=== PATIENT | male | born 1980 | race Caucasian/White ===

== ENCOUNTER 2023-07-05 13:39 | Observation (INO) | payer OTHER, SELFPAY ==
[2023-07-05] VITALS (9 sets, daily range): BP systolic 115–157; BP diastolic 64–118; PULSE 95–142; RESP 14–22; TEMP 36.2–37.3; O2SAT 92–100; BMI 34.1; BMI 31.8
--- NOTE | 2023-07-05 14:00 | RAD_ITS ---
STUDY: X-RAY - LEFT ANKLE REASON FOR EXAM: Male, 43 years old. ankle injury TECHNIQUE: 2 view(s) of the ankle. COMPARISON: None. FINDINGS: Comminuted displaced and angulated fracture of the distal tibia and fibula is present. Normal medial and lateral malleoli. Normal tibiotalar articulation and ankle mortise. Normal visualized talus and calcaneus. The visualized subtalar, talonavicular, calcaneocuboid and tarsal articulations are normal. The soft tissue structures are unremarkable. RAD/Ankle 2 Views IMPRESSION: Oblique spiral type comminuted fracture of the distal tibia and fibula with noted angulation. Recommend orthopedic consult. Electronically Signed: Angel Chin DO at 14:20 EDT ,
[2023-07-05] MEDS: Morphine 4 MG/ML Syringe 6 MG IV (14:43)
[2023-07-05] MEDS: Ondansetron 4 MG/2 ML Vial IV ×2 (14:43→17:42)
--- NOTE | 2023-07-05 15:02 | ED.VIS.LOWEX ---
HPI History of Present Illness Chief Complaint: Lower Extremity Injury Detail of Chief Complaint: Left ankle injury Informant: patient Narrative Narrative: Patient presents after jumping out of the back of a pickup truck at work injuring his left ankle. He was wearing ankle high boots at the time. He has deformity noted over the most distal aspect of the left tib-fib. He denies any other injury. PFSH PFSH Medical History no medical history no medical history Home Medications oxycodone-acetaminophen 5 mg-325 mg tablet (Percocet) 1 tab PO Q4H PRN pain 3 days #20 tabs 07/05/23 [Rx Last Taken Unknown] Allergy/AdvReac Type Severity Reaction Status Date / Time No Known Allergies Allergy Verified 07/05/23 13:40 Social History Smoking Status: Never smoker ROS ROS ED Constitutional Constitutional ED: Denies chills or fever(s) Eyes Eyes: Denies discharge from eye(s) ENT ENT ED: Denies discharge from eye(s), rhinorrhea or sore throat Cardiovascular Cardiovascular: Denies chest pain or palpitations Respiratory/Chest Respiratory/Chest: Denies cough or dyspnea Gastrointestinal Gastrointestinal: Denies abdominal pain, nausea or vomiting Musculoskeletal Musculoskeletal: Reports extremity pain; Denies back pain or neck pain Integumentary Denies Abrasions or rash Neurologic Neurologic: Denies headache(s) Psychiatric Psychiatric: Reports anxiety; Denies depression Allergic/Immunologic Allergic/Immunologic ED: Denies lip swelling or urticaria EXAM Physical Exam Const Vital Signs: 07/05/23 13:40 07/05/23 14:45 07/05/23 14:45 Temperature 97.2 F L 97.6 F L Temperature Source Temporal Pulse Rate 142 H 112 H Pulse Rate [1] 117 H Pulse Rate [2] 110 H Pulse Rate [3] 100 Pulse Rate [4] 101 H Pulse Rate [5] 95 Pulse Rate [6] 104 H Respiratory Rate 18 14 Respiratory Rate [1] 22 H Respiratory Rate [2] 21 H Respiratory Rate [3] 16 Respiratory Rate [4] 19 H Respiratory Rate [5] 14 Respiratory Rate [6] 22 H Blood Pressure 146/96 H Blood Pressure [1] 132/84 H Blood Pressure [2] 138/103 H Blood Pressure [4] 157/118 H Blood Pressure [6] 124/81 H Blood Pressure Mean 112 Pulse Ox 100 98 Oxygen Delivery Method Room Air Room Air Oxygen Delivery Method [1] Nasal Cannula Oxygen Delivery Method [2] Nasal Cannula Oxygen Delivery Method [3] Nasal Cannula Oxygen Delivery Method [4] Nasal Cannula Oxygen Delivery Method [5] Non-Rebreather Oxygen Delivery Method [6] Non-Rebreather Oxygen Flow Rate (L/min) Oxygen Flow Rate (L/min) [1] 2 Oxygen Flow Rate (L/min) [2] 2 Oxygen Flow Rate (L/min) [3] 2 Oxygen Flow Rate (L/min) [4] 2 Oxygen Flow Rate (L/min) [5] 15 Oxygen Flow Rate (L/min) [6] 15 07/05/23 15:39 07/05/23 15:58 07/05/23 16:05 Temperature Temperature Source Pulse Rate 101 H Pulse Rate [1] Pulse Rate [2] Pulse Rate [3] Pulse Rate [4] Pulse Rate [5] Pulse Rate [6] Respiratory Rate 16 Respiratory Rate [1] Respiratory Rate [2] Respiratory Rate [3] Respiratory Rate [4] Respiratory Rate [5] Respiratory Rate [6] Blood Pressure 115/64 Blood Pressure [1] Blood Pressure [2] Blood Pressure [4] Blood Pressure [6] Blood Pressure Mean 81 Pulse Ox 100 Oxygen Delivery Method Nasal Cannula Nasal Cannula Room Air Oxygen Delivery Method [1] Oxygen Delivery Method [2] Oxygen Delivery Method [3] Oxygen Delivery Method [4] Oxygen Delivery Method [5] Oxygen Delivery Method [6] Oxygen Flow Rate (L/min) 4 2 Oxygen Flow Rate (L/min) [1] Oxygen Flow Rate (L/min) [2] Oxygen Flow Rate (L/min) [3] Oxygen Flow Rate (L/min) [4] Oxygen Flow Rate (L/min) [5] Oxygen Flow Rate (L/min) [6] 07/05/23 16:07 07/05/23 17:00 Temperature Temperature Source Pulse Rate 98 Pulse Rate [1] Pulse Rate [2] Pulse Rate [3] Pulse Rate [4] Pulse Rate [5] Pulse Rate [6] Respiratory Rate 16 Respiratory Rate [1] Respiratory Rate [2] Respiratory Rate [3] Respiratory Rate [4] Respiratory Rate [5] Respiratory Rate [6] Blood Pressure 146/78 H Blood Pressure [1] Blood Pressure [2] Blood Pressure [4] Blood Pressure [6] Blood Pressure Mean 100 Pulse Ox 98 Oxygen Delivery Method Room Air Room Air Oxygen Delivery Method [1] Oxygen Delivery Method [2] Oxygen Delivery Method [3] Oxygen Delivery Method [4] Oxygen Delivery Method [5] Oxygen Delivery Method [6] Oxygen Flow Rate (L/min) Oxygen Flow Rate (L/min) [1] Oxygen Flow Rate (L/min) [2] Oxygen Flow Rate (L/min) [3] Oxygen Flow Rate (L/min) [4] Oxygen Flow Rate (L/min) [5] Oxygen Flow Rate (L/min) [6] Positive well nourished and well developed General Appearance ED: well developed HEENT Reports normocephalic and head/scalp atraumatic Eyes PERRL and EOMs intact bilaterally Neck supple Chest Wall inspection of chest normal and palpation of chest normal Resp normal respiratory effort and clear to auscultation bilaterally Cardio regular rhythm Rate: tachycardic GI non-tender Palpation: soft Extremity Extremity Narrative: Deformity to the distal aspect of the left tib-fib. Patient can feel me touching his left foot. Palpable distal pulses. Neuro oriented x3 Sensorium / Orientation: alert Psych Psych Narrative: Tearful Mood & Affect: anxious Skin no rashes or lesions noted MDM MDM MDM Narrative Medical decision making narrative: IV line established. Patient given morphine and Zofran for pain and nausea. Left ankle x-rays obtained. Radiography Diagnostic Testing: Clinical Impression(s) from Imaging Studies Ankle X-Ray 07/05/23 14:00 IMPRESSION: Oblique spiral type comminuted fracture of the distal tibia and fibula with noted angulation. Recommend orthopedic consult. Electronically Signed: Angel Chin DO at 14:20 EDT , Ankle X-Ray 07/05/23 16:00 IMPRESSION: Status post reduction of distal fibular and distal tibial fractures with cast placement. Electronically Signed: Mane Navarro DO at 16:34 EDT , Treatment and Re-Evaluation Narrative: X-rays of the left ankle per my interpretation reveal both bone lower leg fracture with angulation. Test results discussed with the patient he is consented for procedural sedation. Patient underwent procedural sedation with IV propofol, total of 240 mg used. Ankle is reduced and placed in a splint. Postreduction x-rays reveal improved alignment per my interpretation. X-rays were reviewed with Dr. Gorman, podiatry. Plan was to discharge the patient home with analgesics and he would call the office tomorrow for an appointment to discuss surgical fixation. Nursing staff notes that when they got the patient up he began shaking, crying, and having severe pain. At this time he is not able to go home either with crutches or a walker. I spoke with Dr. Gorman again and he will see the patient in consult. I will speak with hospitalist regarding admission. Labs to be obtained at this time and patient given a dose of Dilaudid for pain control. Discharge Plan Triage Chief Complaint: Lower Extremity Injury ED Provider: Sary Lozada Dx/Rx/DC Orders Clinical Impression: Ankle fracture Instructions: ED Ankle Fracture Prescriptions: New oxycodone-acetaminophen [Percocet] 5-325 mg tablet 1 tab PO Q4H PRN (Reason: pain) 3 Days Qty: 20 0RF Primary Care Provider: Care Physician,No Primary Referrals: Sudheer Gorman DPM [Med Staff - Active Staff] - As soon as possible Care Physician,No Primary [Primary Care Provider] - Activity Restrictions/Additional Instructions: As discussed, please call to Sherif's office in the morning. Let them know you are seen in the emergency room with an ankle fracture and he wants to see you to discuss surgical options. Do not bear any weight on your left ankle. Please elevate your leg and keep ice packs on it. Disposition Disposition: Home, Self Care
[2023-07-05] MEDS: Propofol 200 MG/20 ML Vial IV BOLUS (15:55)
--- NOTE | 2023-07-05 16:00 | RAD_ITS ---
INDICATION: post reduction EXAMINATION/TECHNIQUE: X-RAY - LEFT XR Ankle 2 Views COMPARISON: July 05, 2023 14:06 hours FINDINGS: Status post reduction with improved alignment of the bony fragments of the visualized tibia and fibula . A cast has been placed. RAD/Ankle 2 Views IMPRESSION: Status post reduction of distal fibular and distal tibial fractures with cast placement. Electronically Signed: Mane Navarro DO at 16:34 EDT ,
[2023-07-05] MEDS: oxyCODONE 5 MG Tablet PO ×2 (17:12→21:12)
[2023-07-05] MEDS: HYDROmorphone 0.5 MG/0.5 ML SYRINGE IV ×2 (17:42→18:13)
[2023-07-05 17:51] LABS: Absolute Lymphocyte Count 0.76 X10^3/uL (0.83-4.51); Absolute Neutrophil Count 7.7 X10^3/uL (2.0-7.7); Basophil# 0.01 X10^3/uL; Basophil% 0.1 % (0-1); Hematocrit 37.4 % (40-54); Hemoglobin 12.6 g/dL (13.0-16.5); Lymphocyte # 0.76 X10^3/ul (0.83-4.51); Lymphocyte % 8.4 % (19-41); Mean Corp Hgb Conc 33.7 g/dL (32-36); Mean Corpuscular Hgb 30.6 pg (27.0-32.0); Mean Corpuscular Volume 90.8 fL (80-94); Mean Platelet Vol. 10.6 fl (6.2-12.0); Monocyte# 0.54 X10^3/uL; NRBC Flagged by Analyzer 0 % (0-5); Neutrophil # 7.68 X10^3/uL (2.7-7.7); Neutrophil % 85.1 % (47-70); Platelet Count 199 K/mm3 (150-450); RBC Distribution Width CV 12.8 % (11.6-14.6); RBC Distribution Width SD 42.1 fl (35.1-43.9); Red Blood Count 4.12 M/mm3 (4.6-6.2)
[2023-07-05 18:04] LABS: International Normalized Ratio 1.1; Prothrombin Time (Protime)PT. 13.7 SECONDS (11.7-14.9)
[2023-07-05 18:05] LABS: Partial Thromboplast Time 28.3 Seconds (24.1-36.2)
[2023-07-05 18:12] LABS: AST(SGOT) 14 U/L (15-37); Alanine Aminotransfer ALT/SGPT 22 U/L (16-61); Alkaline Phosphatase 46 U/L (45-117); Anion Gap 7 (5-15); BUN 13 mg/dL (7-18); BUN/Creat Ratio 12.5 RATIO (10-20); Bilirubin, Direct 0.18 mg/dL (0.00-0.30); Calcium,Total 9.2 mg/dL (8.5-10.1); Chloride 105 mmol/L (98-107); Creatinine, Serum 1.04 mg/dL (0.70-1.30); EST Glomerular Filtration Rate 83 mL/min (>60); Est Glom Filt Rate - Afr Amer 100 mL/min (>60); Estimated Creatinine Clearance 94.56 ml/min; Globulin 2.9 g/dL (2.2-4.2); Glucose 99 mg/dL (74-106); Potassium 3.7 mmol/L (3.5-5.1); Protein, Total 6.9 g/dL (6.4-8.2); Sodium Level 139 mmol/L (136-145)
[2023-07-05] MEDS: diazePAM 5 MG Tablet PO ×2 (18:13→21:12)
[2023-07-05] MEDS: Morphine 4 MG/ML Syringe IV ×2 (19:25→23:32)
[2023-07-05] MEDS: Lactated Ringers 1,000 ML 80 ML IV (19:31)
--- NOTE | 2023-07-05 20:00 | CT_ITS ---
CT LEFT LOWER EXTREMITY WITH 3-D IMAGING CLINICAL INDICATION: Pilon Fracture Left Lower Extremity TECHNIQUE: Axial CT images of the LEFT lower extremity was performed IV contrast material. Coronal and sagittal reformats were provided. RADIATION DOSAGE (If Supplied By Facility): CTDIvol = ( 15.35 ) mGy, DLP = ( 580.19 ) mGycm COMPARISON: FINDINGS: Bones: There is a comminuted fracture at the distal shaft of the tibia. A fracture line is also noted through the lateral aspect of the distal tibial end extending to the articular surface at the talotibial articulation. There is also a fracture through the posterior malleolus of the tibia. Comminuted distal fibular fracture. Soft Tissues: There is subcutaneous edema in the distal lower leg/ankle anterolaterally. CT/Extremity Lower without Contra IMPRESSION: Multiple fractures of the distal tibia is noted. Comminuted distal fibular fracture. Electronically Signed: Mane Navarro DO at 21:29 EDT Reading Location ID and State: [facility] / [place] Tel [phone], Service support ,
[2023-07-06 01:00] VITALS: BP 160/86; PULSE 96; RESP 18; TEMP 37.1; O2SAT 100
[2023-07-06] MEDS: diazePAM 5 MG Tablet PO ×4 (01:13→17:25)
[2023-07-06] MEDS: Morphine 4 MG/ML Syringe IV ×4 (03:34→20:36)
[2023-07-06] MEDS: oxyCODONE 5 MG Tablet PO ×4 (05:20→18:31)
[2023-07-06 05:22] VITALS: BP 166/87; PULSE 84; RESP 16; TEMP 37.2; O2SAT 100
[2023-07-06] MEDS: Lactated Ringers 1,000 ML 80 ML IV ×2 (05:30→17:25)
[2023-07-06] MEDS: 0.9% Saline Lock 10 ML Syringe IV ×2 (07:54→15:44)
[2023-07-06 08:00] VITALS: BP 150/90; PULSE 94; RESP 18; TEMP 37.2; O2SAT 100
[2023-07-06] MEDS: LORazepam 2 MG/ML Syringe IV (08:09)
[2023-07-06] MEDS: Acetaminophen 500 MG Tablet 1000 MG PO ×3 (08:09→21:07)
[2023-07-06 08:22] LABS: Vitamin D,25 Hydroxy 37.8 ng/mL
[2023-07-06] MEDS: Enoxaparin 40 MG/0.4 ML Syringe SC (09:53)
[2023-07-06] MEDS: Polyethylene Glycol 3350 17 GM PACKET PO (09:54)
[2023-07-06] MEDS: Influenza Virus Vac Quad 23-24 60 MCG/0.5 ML SYRINGE IM (09:56)
--- NOTE | 2023-07-06 14:00 | CHAPLAIN ---
Type of Pastoral Visit _x__ Initial Visit ___ Follow-up Visit ___ On-call Visit ___ General Patient Visit ___ Spiritual Assessment ___ Family Conference ___ Bereavement ___ Rapid Response ___ Code Blue ___ Other (describe below) Pastoral Care Referral From _x__ Patient ___ Family ___ Nurse ___ Physician ___ Field Ring Assembler ___ Surface Hydrologist ___ Other (describe below) Sacrament/Intervention _x__ Active listening ___ Anointing ___ Presybeterian ___ Bereavement ___ Communion ___ Verna exploration ___ ___ Life review _x__ Prayer ___ Reconciliation ___ Sacrament of Sick _x__ Supportive presence ___ Wedding ___ Other (describe below) Pastoral Comments patient is welcoming of support; pt admits to pain and needing to wait until tomorrow for surgery on ankle; pt is tearful as he describes his situation and how disappointed he is at 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
[2023-07-06 14:29] VITALS: BP 143/89; PULSE 96; RESP 16; TEMP 37.1; O2SAT 100
--- NOTE | 2023-07-06 15:47 | NURSING ---
educational handout provided prescription Opioids, what you need to know.
--- NOTE | 2023-07-06 19:22 | HP.PCM_ITS ---
HPI - General General Date of Admission: 07/05/23 Date of Service: 07/06/23 Chief Complaint: Tibial fracture/fibular fracture/pilon fracture left lower extremity HPI Narrative PERNELL TIRADO, is a 43 M who presents to [facility] ED on 07/05/2023 with left lower extremity injury/left ankle injury. He has no prior medical history and denies taking medications. He states that he was jumping out of the back of the pickup truck at work injuring his left ankle. He is unsure of how the ankle injury occurred but states he landed awkwardly with immediate pain. He states he was wearing lace up high ankle boots at time of injury. Upon presentation to the ED he has visible deformity over the most distal aspect of the left tibial fibular region. Denies other injury. Radiographs were taken in the ED demonstrating comminuted displaced and angulated fracture of the distal tibia and fibula with normal medial and lateral malleoli. Normal tibiofibular articulation and ankle mortise. He did undergo closed reduction with splinting and sugar-tong casting. Pedal pulses palpable prior to and following reduction of fracture. Neurovascular status intact. Upon attempting nonweightbearing with crutches he was visibly shaken and unable to stand for transfers and was admitted for pain management. Podiatry was consulted for tibial fracture/fibular fracture/pilon fracture of the left lower extremity. PFSH Medical History Anxiety Depression Migraines Non-smoker Medical History no medical history Home Medications oxycodone-acetaminophen 5 mg-325 mg tablet (Percocet) 1 tab PO Q4H PRN pain 3 days #20 tabs 07/05/23 [Rx Last Taken Unknown] Allergy/AdvReac Type Severity Reaction Status Date / Time No Known Allergies Allergy Verified 07/05/23 13:40 Social History Smoking Status: Never smoker ROS Constitutional Constitutional: Denies anorexia, body ache(s), chills, fatigue or fever(s) Eyes Eyes: Denies blurry vision, change in vision or loss of vision ENT HEENT: Denies dysphagia, nasal congestion or sore throat Cardiovascular Cardiovascular: Denies chest pain, claudication or cold extremities Respiratory/Chest Respiratory/Chest: Denies chest congestion, cough or wheezing Gastrointestinal Gastrointestinal: Denies abdominal pain, constipation, diarrhea, nausea or vomiting Genitourinary Genitourinary: Denies dysuria, hematuria, urinary frequency, urinary hesitancy, urinary incontinence or urinary urgency Musculoskeletal Musculoskeletal: Reports other Details: Denies joint pain, joint stiffness, joint swelling. Reports pain in the left lower extremity Integumentary Integumentary: Denies lesions, pruritus or rash Neurologic Neurologic: Denies dizziness, numbness or seizures Psychiatric Psychiatric: Reports anxiety; Denies depression Endocrine Endocrinology: Denies cold intolerance or heat intolerance Hematologic/Lymphatic Hematologic/Lymphatic: Denies easy bleeding or easy bruising Allergic/Immunologic Allergic/Immunologic: Denies wheezing Vital Signs Vital Signs Vital Signs: 07/05/23 19:36 07/05/23 22:28 07/06/23 01:00 Temperature 98.8 F Temperature Source Oral Pulse Rate 96 Pulse Strength Normal (2+) Respiratory Rate 18 Respiratory Effort Normal Non-Labored Respiratory Depth Normal Respiratory Pattern Normal Blood Pressure 160/86 H Blood Pressure Mean 110 Blood Pressure Source Monitor Blood Pressure Position Semi-Fowlers Blood Pressure Location Right Arm Pulse Ox 100 Oxygen Delivery Method Room Air Room Air 07/06/23 01:17 07/06/23 05:22 07/06/23 08:00 Temperature 98.9 F 99 F Temperature Source Oral Temporal Pulse Rate 84 94 Pulse Strength Respiratory Rate 16 18 Respiratory Effort Normal Non-Labored Respiratory Depth Normal Respiratory Pattern Normal Blood Pressure 166/87 H 150/90 H Blood Pressure Mean 113 110 Blood Pressure Source Monitor Monitor Blood Pressure Position Semi-Fowlers Semi-Fowlers Blood Pressure Location Right Arm Right Arm Pulse Ox 100 100 Oxygen Delivery Method Room Air Room Air Room Air 07/06/23 08:00 07/06/23 14:29 07/06/23 15:38 Temperature 98.7 F Temperature Source Oral Pulse Rate 96 Pulse Strength Respiratory Rate 18 16 Respiratory Effort Normal Respiratory Depth Normal Respiratory Pattern Normal Blood Pressure 143/89 H Blood Pressure Mean 107 Blood Pressure Source Monitor Blood Pressure Position Semi-Fowlers Blood Pressure Location Right Arm Pulse Ox 100 100 Oxygen Delivery Method Room Air Room Air Room Air Weight Weight: 100.561 kg Body Mass Index (BMI) 31.8 Physical Exam Const alert, oriented x3 and no apparent distress General Appearance: cooperative and well developed HEENT normocephalic Eyes General Eye: normal appearance of both eyes Neck full ROM General: normal visual inspection Lymph Lymphatic: no lymphadenopathy noted and no lymphedema noted Chest inspection of chest normal Resp normal respiratory effort Cardio regular rate and regular rhythm GI soft to palpation and non-tender Extremity Extremity Narrative: Left lower extremity: Vascular: DP and PT pulses palpable with adequate capillary fill time less than 3 seconds to digits. Normal temperature gradient proximal to distal. Mild to moderate edema about the ankle. No evidence of fracture blister. Dermatological: Skin demonstrates normal turgor. No rashes or lesions, no subcutaneous nodules, no ecchymosis. Skin at lateral ankle does demonstrate moderate soft tissue swelling without evidence of fracture blister. Skin overlying fracture sites is intact without evidence of open wound. Musculoskeletal: Muscle strength deferred secondary to fracture. Range of motion of the joints deferred secondary to fracture. Does have pain to p alpation about the ankle and anterior tibial shaft. Skin skin turgor normal and no jaundice Neuro oriented x3 Results Lab / Micro Data 07/05/23 17:38 07/05/23 17:38 Labs: Laboratory Results - last 24 hr 07/06/23 06:15: Vitamin D 25-Hydroxy 37.8 Radiology Impression Lower Extremity CT 07/05/23 20:00 IMPRESSION: Multiple fractures of the distal tibia is noted. Comminuted distal fibular fracture. Electronically Signed: Mane Navarro DO at 21:29 EDT Reading Location ID and State: [facility] / [place] Tel [phone], Service support , Assessment & Plan Assessment/Plan (1) Ankle fracture: (2) Displaced fracture of lateral malleolus of left fibula: (3) Displaced comminuted fracture of shaft of left tibia, initial encounter for closed fracture: (4) Pain in left lower leg: PLAN: Plan Patient seen and evaluated early this a.m. Posterior splint and sugar-tong cast intact to left lower extremity. Dressings taken down and removed for skin examination. On examination he demonstrates no evidence of fracture blisters or ecchymosis at this present time. There is mild edema to the lateral aspect of the lower extremity overlying the fibular fracture. He does demonstrate palpable pedal pulses DP and PT with adequate capillary fill time to the digits. Neurovascular status intact. Modified Mares compression dressing was was reapplied/placed with posterior s plint and sugar-tong cast reapplied and anchored with 4 inch and 6 inch Francisco wrap's. Radiographic: Radiographs of the left ankle prereduction demonstrate oblique spiral type comminuted fracture of the distal tibia and fibula with noted angulation. Postreduction demonstrate status post reduction of the distal fibular and distal tibia fractures with improved alignment with bony fragments of the visualized tibia and fibula. A cast has been placed. I did order and review CT all lower extremity demonstrating a comminuted fracture of the distal shaft of the tibia with fracture line also noted through the lateral aspect of the distal tibia extending to the articular surface of the talotibial articulation. There is also fracture through the posterior malleolus of the tibia. There is a comminuted distal fibular fracture. There is subcutaneous edema of the distal lower leg/ankle anterior laterally. Laboratory data was reviewed and otherwise unremarkable. Vitamin D level WNL. He is to remain nonweightbearing to the left lower extremity with assistance of a walker. Continue to elevate left lower extremity at all times of rest. May apply ice behind left knee to aid in pain reduction. Pain medication: IV morphine 4 mg every 4 hours. Oxycodone p.o. every 4-6 hours. IV Tylenol as needed. May give Ativan 2 mg as needed. I discussed with patient and surgical plan for staged intervention secondary to soft tissue swelling. I discussed the nature of his injury in detail with patient and in addition to the surgical plan. Discussed application of an external fixator tomorrow for fracture management. Discussed following application of fixator plan for placement in SNF for continued care and pain management. Discussed returning in 2 weeks for primary ORIF of distal tibia and fibular fractures. Following fixation of fractures he will be admitted for postoperative pain management. Discussed possibility of going home following hospital admission for ORIF. I discussed the surgical plan in detail with patient and . Patient understands that this is a traumatic injury requiring sequential approach of fracture management. He is understanding that this is a nonelective procedure with need for fixation. also voices understanding of surgical plan. I discussed the risks and complications of the procedure in detail. Discussed the risks and complications include but are not limited to the following: Pain, continued pain, complex regional pain syndrome, neuritis/numbness, infection, edema, dehiscence, delayed healing/nonhealing, delayed union/nonunion, malunion, overcorrection/under correction, pin tract infection, painful hardware/symptomatic hardware, cage rage secondary to fixator, posttraumatic arthritis, difficulty wearing shoes/boots, inability to wear shoes/boots, contracture, decreased range of motion/ankle stiffness, addiction to pain medication, blood clot, allergic reaction, loss of function, loss of limb, loss of life. Patient and voiced understanding of these risks. Patient and understand necessity of fracture fixation and surgical plan. Consent for application of external fixator left lower extremity was obtained and patient signed freely. Plan for surgical intervention of application of external fixator left lower extremity tomorrow, 07/07/2023 at 2 PM. Patient to remain n.p.o. overnight. He is to also remain nonweightbearing to the left lower extremity. Podiatry will continue to follow Jr. Ashwin Prince.[facility] [phone]
[2023-07-06 21:02] VITALS: BP 157/90; PULSE 93; RESP 16; TEMP 36.9; O2SAT 100
[2023-07-07] VITALS (10 sets, daily range): BP systolic 133–151; BP diastolic 71–95; PULSE 76–114; RESP 16–22; TEMP 36.4–37.3; O2SAT 97–100; BMI 31.8
[2023-07-07] MEDS: oxyCODONE 5 MG Tablet PO ×3 (00:56→18:40)
[2023-07-07] MEDS: diazePAM 5 MG Tablet PO ×2 (00:56→20:54)
[2023-07-07] MEDS: Morphine 4 MG/ML Syringe IV ×4 (03:30→20:54)
[2023-07-07] MEDS: Lactated Ringers 1,000 ML 80 ML IV ×2 (03:32→18:02)
[2023-07-07] MEDS: Acetaminophen 500 MG Tablet 1000 MG PO ×2 (04:59→20:54)
--- NOTE | 2023-07-07 11:27 | CASEMGMT ---
A list of HH & SNF?providers including quality and resource use data and consistent with the patient's preferred geographic region, medical needs, and insurance network was created in [employer] Guide.? This list was provided to the RN HARI. Caro Mitchell, Discharge Planning Asst.
--- NOTE | 2023-07-07 11:45 | CASEMGMT ---
HOMERO NORIEGA FELT CUTTER CM to room to meet with patient for initial transition planning/care coordination assessment. HOMERO NORIEGA introduced self and role at [facility].? Pt voices understanding and consents to assessment at this time.? Pt resting in bed, painful, but states willing to complete assessment w/HOMERO NORIEGA at this time. Sig otherKristi, @ bedside and pt agreeable to her being present during assessment.? Pt is A/O at this time and answers all questions appropriately.?? Care providers, pharmacy, and demographics verified/updated at this time. PCP: Pt states has a PCP in [place] but has not been in to see him for a couple of years and would like to switch to a different PCP. Pt states he has commercial insurance, [employer]. Provided w/list of PCP's in the [place] area that are in-network w/[employer] that was prepared by HOMERO Curiel CM. Specialists: none Preferred Pharmacy: [facility] [place], [place] Insurance: Intrakr for this hospitalization. Pt also has [employer] insurance. Prescription Benefit:? Yes Living Will/HPOA:? Pt does not currently have LW/HCPOA and would like to complete. Hazel LEYVA, made aware. LNOK: Pt has 2 children, ages 18 and 5. Sig other, Kristi. Living Arrangements: Pt has lived w/sig other, Kristi, for about 15 yrs. Their 5-yr-old lives w/them and his 18-yr-old stays w/them occasionally. They live in a one-story home w/2 steps to enter. Pt was independent prior to injury. He works full-time. Transportation: Pt, Kristi. DME: ? Denied having used any DME prior to injury. Pt and Kristi anticipate pt will need the following, once he returns home: knee scooter, shower chair, walker. HHC/SNF: No hx of either. Per Dr Gorman note, pt to go to surgery today and external fixator to be placed, pt to go to a SNF for a couple of weeks, and then return for ORIF. Per Kristi and patient, Dr oGrman did inform them of this. Discussed discharge plan with them and pt preference. Kristi and pt state, if pt would be able to discharge home, they would prefer that, but if SNF is needed, then they would be agreeable. Pt resting in bed and is very painful. Pt going to OR this AM. They were made aware therapy would evaluate pt tomorrow and would make recommendations and further discussion about discharge plan would be discussed further at that time. They were provided w/list of SNF's that was prepared by HOMERO Curiel CM, and Caro, operations planner to review. Top 3 choices, should pt need to go to a SNF, are as follows: 1. [facility]. [facility] 3. [facility] Hazel LEYVA, made aware. PLAN: ?TBD by progress w/therapy. Monty KELLY RN CM
--- NOTE | 2023-07-07 11:48 | CASEMGMT ---
Met with patient to complete ROD form. ROD form explained to patient who voiced understanding and signed form. Original form placed in pt?s chart and copy provided to patient. Caro Mitchell, Discharge Planning Asst.
--- NOTE | 2023-07-07 12:03 | CASEMGMT ---
Discharge Planning A list of?PCP?providers including quality and resource use data and consistent with the patient's preferred geographic region, medical needs, and insurance network was created in [employer] Guide.? This list was provided to the RN HARI. Caro Mitchell, Discharge Planning Asst.
--- NOTE | 2023-07-07 14:25 | RAD_ITS ---
STUDY: X-RAY - LEFT ANKLE REASON FOR EXAM: Male, 43 years old. FX TECHNIQUE: 20 view(s) of the ankle. DLP was 6.97 COMPARISON: None. FINDINGS: 20 fluoroscopic guided intraoperative views of the ankle were obtained during open reduction internal fixation of distal tibial and fibular fractures. RAD/Ankle 2 Views IMPRESSION: Intraoperative open reduction internal fixation of distal tibial and fibular fractures Electronically Signed: Donis Vicente MD at 18:58 EDT ,
[2023-07-07] MEDS: Cefazolin 2 GM in 0.9% Normal Saline (100mL Bag) 100 ML IV (14:34)
[2023-07-07] MEDS: Lidocaine 1% (20 ml mdv) 20 ML Vial (14:48)
[2023-07-07] MEDS: Bupivacaine 0.25% 30 ML Vial (14:48)
[2023-07-07] MEDS: Gabapentin 600 MG Tablet PO (17:49)
--- NOTE | 2023-07-07 19:10 | PCM.OPRPT ---
Problems Associated Problem List Diagnoses (1) Displaced comminuted fracture of shaft of left tibia, initial encounter for closed fracture: (2) Displaced fracture of lateral malleolus of left fibula: (3) Pain in left lower leg: (4) Ankle fracture: Report of Operation Date of Procedure: 07/07/23 Pre-Operative Diagnosis: 1. Displaced comminuted fracture of shaft of left tibia 2. Displaced fracture of lateral malleolus left fibula 3. Pain in left lower leg Post-Operative Diagnosis: 1. Displaced comminuted fracture of shaft of left tibia 2. Displaced fracture of lateral malleolus left fibula 3. Pain in left lower leg Surgery/Procedure Performed:: Application of external fixator left lower extremity Description of Surgical Findings:: See operative note for findings Surgeon: Sudheer Gorman force variation equipment tender: Kee Goode DPM PGY-3 Type of Anesthesia: General and Local (20 cc one-to-one mixture 1% lidocaine plain and 0.5% Marcaine plain) Specimen's removed: None Drains: None Estimated Blood Loss (mL): < 5mL Description of Procedure: HPI/indication: Patient is a 43-year-old male who presented to [facility] ED on 07/05/2023 with left lower extremity injury/left ankle injury. Patient reports jumping off the back of a pickup truck at work at the end of the shift injuring his left ankle. He is unsure of how how the injury occurred but states he did land awkwardly with immediate pain. Was wearing lace up hightop ankle boot at time of injury. Following presentation to ED he did undergo closed reduction and was placed in a splint/sugar-tong cast and admitted to hospital for pain control. CT scan obtained demonstrating displaced comminuted fracture of the tibial shaft, posterior malleolus fracture, and displaced fibular fracture. Discussion was had with patient and the nature of his traumatic injury requiring a sequential approach of fracture management. Discussed associated risks of primary fixation with concomitant soft tissue swelling. Discussed application of external fixator to the left lower extremity. Discussed allowing edema control prior to primary ORIF. They voiced understanding of the surgical plan. They understand this is not an elective procedure with need for fixation. I discussed the risk and complications of procedure in detail. Discussed the risk and complications include but are not limited to the following: Pain, continued pain, complex regional pain syndrome, neuritis/numbness, infection, edema, dehiscence, delayed healing/nonhealing, delayed union/nonunion, malunion, overcorrection/under correction, pin tract infection, painful hardware, symptomatic hardware, cage rage secondary to external fixator, posttraumatic arthritis, fracture, difficulty wearing shoes/boots, inability to wear shoes/boots, contracture, decreased range of motion/ankle stiffness, addiction to pain medication, blood clot, allergic reaction, loss of function, loss of limb, loss of life. Patient and voiced understanding of these risk. Patient and understand the necessity of fracture fixation and surgical plan. Consent for application of external fixator was obtained and patient freely signed. All diagnostic data was reviewed prior to entering the OR. Operative limb was signed prior to entering OR. Patient was scheduled to undergo application of external fixator left lower extremity on 07/07/2023 at [facility]. Procedure: Under mild sedation patient was brought in the operating placed on table in supine position. Following induction of IV general anesthesia pneumatic bacteria was placed about the patient's left thigh. Next, a local anesthetic block consisting of 20 cc one-to-one mixture 1% lidocaine plain and 0.5% Marcaine was performed about the proximal lower extremity. At this time lower extremity was cleanly shaven for clean surgical site. Next, the leg was scrubbed, prepped, and draped in the usual aseptic manner. An Esmarch bandage was utilized to exsanguinate the left lower extremity and the pneumatic thigh tourniquet was inflated to 300 mmHg. Next attention was directed to the left lower extremity where at this point, intraoperative fluoroscopy was utilized to identify the fracture site as well as the ankle and the appropriate starting point in the tibia. Following identification two 5.0 x 175 mm Schanz pins were placed in the tibia bicortically, which were visualized under fluoroscopy. Next, utilizing fluoroscopy the appropriate starting point on the calcaneus was used for the transcalcaneal crossing pin. Once identified, a single central threaded calcaneal transfixion pin, 6 mm x 300 mm was applied across the calcaneus parallel to the joint surface. After placement of all the pins, the external fixator/frame was then applied (carbon fiber rods measuring 1 x 100mm, 3 x 150mm, 1 x 250mm, 1 x 400mm, and 1 x 450mm with combination clamps x 12), and traction with attempts to get a hold of the fibular shaft fracture out to length as well as distal pilon fracture of the tibia out to length. It was noted and checked with fluoroscopy that the fracture fragment tibia/fibula was in a more reduced position in sagittal and coronal planes, the external fixator apparatus was then locked into place with the [employer] T-handle per the outreach specialist's recommendations. Next, a Schanz pin measuring 4 mm x 125 mm was placed into the medial cuneiform and the foot was dorsiflexed to prevent equinus contracture and pin secured to the frame utilizing [employer] T-handle per manufacture recommendation. Kickstand was applied to frame to aid in compliance with nonweightbearing status to manufactures recommended guidelines. X-ray images were taken to identify correct placement of the hardware with improved reduction of the fracture fragments. Next, a simple 3-0 interrupted Prolene suture was utilized to aid in closure about pin sites. At this time the pneumatic thigh tourniquet was deflated and a prompt hyperemic response was noted to the digits of the left foot. The Schanz pin, calcaneal and tibial crossing pin sites were dressed with jumpstart pads and clips the proximal Schanz pins were covered with a jumpstart and drain sponge, following this application of 3 points of Francisco bandage for edema control. The patient tolerated the procedure and anesthesia well and was transported to PACU vital signs stable vascular status intact to the left foot. He will remain nonweightbearing to the operative extremity, left lower extremity, and continue to elevate with blanket bump/pillows with no pressure to the right heel. He will return to the floor for continued pain management once anesthesia protocol has been met. Podiatry will continue to follow while in-house. At this time plan for SNF placement for continued pin site care to change jumpstart pin dressings per manufacture recommendation. Plan to perform primary ORIF of fracture sites in 2 weeks. Grafts/Implants Used: Arthrex ArthroFx external fixator system, Schanz pins x 3, Transfixion pin Complications None Admit VTE Documentation VTE Present on Admission: No VTE Mechan Device Prophylaxis: SCD's VTE Pharm Prophylaxis ordered?: Yes
--- NOTE | 2023-07-07 19:20 | RAD_ITS ---
STUDY: X-RAY - LEFT ANKLE REASON FOR EXAM: Male, 43 years old. Post-op external fixator application TECHNIQUE: 5 view(s) of the ankle. COMPARISON: None. FINDINGS: Postsurgical changes status post open reduction internal fixation of distal tibial and fibular fractures and placement of fixating pins with fracture fragments in near anatomic alignment and position RAD/Ankle min 3 Views IMPRESSION: Status post ORIF distal tibial and fibular fractures Electronically Signed: Donis Vicente MD at 20:15 EDT ,
[2023-07-08 00:50] VITALS: BP 161/78; PULSE 101; RESP 16; TEMP 36.8; O2SAT 100
[2023-07-08] MEDS: diazePAM 5 MG Tablet PO ×6 (01:02→22:02)
[2023-07-08] MEDS: oxyCODONE 5 MG Tablet PO ×6 (01:02→22:00)
[2023-07-08] MEDS: Morphine 4 MG/ML Syringe IV ×5 (04:13→20:13)
[2023-07-08 04:21] VITALS: BP 133/88; PULSE 88; RESP 18; TEMP 36.7; O2SAT 100
[2023-07-08] MEDS: Acetaminophen 500 MG Tablet 1000 MG PO ×3 (05:25→22:00)
[2023-07-08 07:54] VITALS: BP 152/81; PULSE 104; RESP 18; TEMP 37.1; O2SAT 100
[2023-07-08 11:06] VITALS: BP 156/74; PULSE 99; RESP 18; TEMP 36.8; O2SAT 100
--- NOTE | 2023-07-08 11:23 | CASEMGMT ---
Discharge Planning Referral sent via [facility] to [facility]. Caro Mitchell, Discharg Planning Asst.
--- NOTE | 2023-07-08 11:33 | CASEMGMT ---
Social Work SW met with pt and introduced self and role of SW. Pt requesting to complete advance directives. SW assisted in completing a living will and health care power of insurance attorney naming his significant other Kristi Chandra. Copy placed on chart and original given to pt. SW also spoke with pt regarding discharge plan. Kristi called and on speaker phone during conversation. Pt met with therapy this morning and SW reviewed pts functional ability during this time. Pt and Kristi feel pt will need SNF placement. List had been reviewed by pt and SO and preferences are 1. [facility] 2. [facility] 3. [facility]. Referral to be sent. Pt is here under workers comp. [employer] reached out to the appropriate staff to obtain a claim number. Plan: [facility], pending acceptance and [facility] approval. BIENVENIDO Quintana
--- NOTE | 2023-07-08 11:47 | CASEMGMT ---
Discharge Planning Referral sent to [facility] via [facility]. Caro Mitchell, Discharge Planning Asst.
[2023-07-08] MEDS: 0.9% Saline Lock 10 ML Syringe IV ×2 (12:11→16:11)
--- NOTE | 2023-07-08 12:19 | CASEMGMT ---
Discharge Planning Patient has been declined by [facility]. [facility] will not have open bed until early next week. Their nearby sister facilities do have bed availability. SW updated. Caro Mitchell, Discharge Planning Asst.
--- NOTE | 2023-07-08 13:02 | PCM.PROGNOTE ---
Subjective Subjective Patient is a 43-year-old male who is seen in follow-up s/p application of external fixator. POD #1. Does admit to some pain still and feels like the frame is cumbersome. Therapy assisting in remaining nonweightbearing to the left lower extremity with assistance of walker. They are assisting with transitions and bathroom. Patient has been able to void. Reports no difficulty with this. Denies constitutional symptoms. Denies further complaints. Objective Data Objective Data Vital Signs: Vital Signs Temp Pulse Resp BP Pulse Ox O2 Del Method O2 Flow Rate 98.2 F 99 18 156/74 H 100 Room Air 2 07/08/23 11:06 07/08/23 11:06 07/08/23 11:06 07/08/23 11:06 07/08/23 11:06 07/08/23 11:06 07/05/23 15:58 Oxygen Flow Rate (L/min) [1] 2 Oxygen Flow Rate (L/min) [6] 15 Oxygen Flow Rate (L/min) [5] 15 Oxygen Flow Rate (L/min) [4] 2 Oxygen Flow Rate (L/min) [3] 2 Oxygen Flow Rate (L/min) [2] 2 Oxygen Flow Rate (L/min) 2 Oxygen Delivery Method [1] Nasal Cannula Oxygen Delivery Method [6] Non-Rebreather Oxygen Delivery Method [5] Non-Rebreather Oxygen Delivery Method [4] Nasal Cannula Oxygen Delivery Method [3] Nasal Cannula Oxygen Delivery Method [2] Nasal Cannula Oxygen Delivery Method Room Air Weight: 100.561 kg Body Mass Index (BMI) 31.8 Intake & Output: Intake and Output for Last 24 Hours 07/06/23 07/07/23 07/08/23 23:59 23:59 23:59 Intake Total 2452.00 / 2452.00 1919.33 / 1919.33 4124 / 4124 Output Total 2550 / 3100 1000 / 1000 2700 / 2700 Balance -98.00 / -648.00 919.33 / 919.33 1424 / 1424 Lab / Micro Data 07/05/23 17:38 07/05/23 17:38 Radiography Diagnostic Testing: Radiology Impression Ankle X-Ray 07/07/23 14:25 IMPRESSION: Intraoperative open reduction internal fixation of distal tibial and fibular fractures Electronically Signed: Donis Vicente MD at 18:58 EDT Reading Location ID and State: [place] / [place] Tel [phone], Service support , Ankle X-Ray 07/07/23 19:20 IMPRESSION: Status post ORIF distal tibial and fibular fractures Electronically Signed: Donis Vicente MD at 20:15 EDT Reading Location ID and State: [place] / [place] Tel [phone], Service support , Physical Exam Const alert, oriented x3 and no apparent distress General Appearance: cooperative and well developed HEENT normocephalic Eyes General Eye: normal appearance of both eyes Neck full ROM General: normal visual inspection Lymph Lymphatic: no lymphadenopathy noted and no lymphedema noted Chest inspection of chest normal Resp normal respiratory effort Cardio regular rate and regular rhythm GI soft to palpation and non-tender Extremity Extremity Narrative: Left lower extremity: Vascular: DP and PT pulses palpable with adequate capillary fill time less than 3 seconds to digits. Normal temperature gradient proximal to distal. Mild to moderate edema about the ankle. No evidence of fracture blister. Dermatological: Skin demonstrates normal turgor. No rashes or lesions, no subcutaneous nodules, no ecchymosis. Skin at lateral ankle does demonstrate moderate soft tissue swelling without evidence of fracture blister. Skin overlying fracture sites is intact without evidence of open wound. Musculoskeletal: External fixator in place to left lower extremity with dressings intact. Muscle strength deferred secondary to fracture. Range of motion of the joints deferred secondary to fracture. Does have pain to palpation about the ankle and anterior tibial shaft. Skin skin turgor normal and no jaundice Neuro oriented x3 Assessment & Plan Assessment/Plan (1) Displaced comminuted fracture of shaft of left tibia, initial encounter for closed fracture: (2) Displaced fracture of lateral malleolus of left fibula: (3) Pain in left lower leg: (4) Ankle fracture: PLAN: Plan Patient seen and evaluated He is s/p application of external fixator left lower extremity. DOS 07/07/2023. POD #1 At this time he is doing well but still does cite some pain. Discussed with him that this is expected with this type of fracture/nature of injury in addition to postsurgical status. Discussed that this will improve over the next few days. Discussed expectations for the following primary ORIF for full understanding of his pain management and thorough aftercare. He is understanding of our discussion. External fixator with compressive dressing intact to left lower extremity. He does demonstrate palpable pedal pulses DP and PT with adequate capillary fill time to the digits. Neurovascular status intact. Radiographic: Radiographs of the left ankle 07/06/23 prereduction demonstrate oblique spiral type comminuted fracture of the distal tibia and fibula with noted angulation. Postreduction demonstrate status post reduction of the distal fibular and distal tibia fractures with improved alignment with bony fragments of the visualized tibia and fibula. A cast has been placed. CT 07/06/23: lower extremity demonstrating a comminuted fracture of the distal shaft of the tibia with fracture line also noted through the lateral aspect of the distal tibia extending to the articular surface of the talotibial articulation. There is also fracture through the posterior malleolus of the tibia. There is a comminuted distal fibular fracture. There is subcutaneous edema of the distal lower leg/ankle anterior laterally. Laboratory data was reviewed and otherwise unremarkable. Vitamin D level WNL. He is to remain nonweightbearing to the left lower extremity with assistance of a walker. Continue to elevate left lower extremity at all times of rest. May apply ice behind left knee to aid in pain reduction. Pain medication: IV morphine 4 mg every 4 hours. Oxycodone p.o. every 4-6 hours. IV Tylenol as needed. May give Ativan 2 mg as needed. I discussed with patient and surgical plan for staged intervention secondary to soft tissue swelling. I discussed the nature of his injury in detail with patient and in addition to the surgical plan. Discussed application of an external fixator for fracture management, this was applied 07/07/2023. Discussed following application of fixator plan for placement in SNF for continued care and pain management. Discussed returning in 2 weeks for primary ORIF of distal tibia and fibular fractures. Following fixation of fractures he will be admitted for postoperative pain management. Discussed possibility of going home following hospital admission for ORIF. He is to remain nonweightbearing to the left lower extremity with assistance of walker. He is currently awaiting SNF placement. Dressing to remain intact for 7 days. Following this, dressings will be taken down and pin sites changed with new jumpstart dressing and compressive wrap dressing applied again to the left lower extremity. This is a planned staged surgical management in case with primary ORIF of the tibia and fibula fractures to follow in 2 weeks. Podiatry will continue to follow. Sudheer Gorman Jr. D.P.M. [facility] [phone]
--- NOTE | 2023-07-08 15:17 | CASEMGMT ---
Social Work [facility] and [facility] is unable to accept but [facility] is able to accept. Pt made aware and agreeable. Phone call to [facility] and spoke with Felicita Tinajero [phone] who is the front ladies' locker room attendant. Felicita states that case was just submitted and a claim number would not be available until Tuesday morning. Pt's assigned CM is Rosamaria Orta [phone]. SW left for Rosamaria requesting return call. Ruthie is contact at [facility] [phone] and she was updated on status of [facility] claim. A bed will be held for pt and SW will submit C9 on Tuesday once a claim number is available. Physician and pt notified. Plan: [facility], pending approval from [facility] BIENVENIDO Quintana
[2023-07-08 15:46] VITALS: BP 148/95; PULSE 88; RESP 16; TEMP 36.8; O2SAT 95
--- NOTE | 2023-07-08 16:25 | CASEMGMT ---
Social Work Return call from Rosamaria Orta at [facility]. Claim number has not been assigned. Rosamaria requesting clinicals be sent. [employer] faxed to requested number [phone]. C9 can be faxed to Rosamaria once claim number is assigned. [employer] to follow up on Tuesday for claim number. BIENVENIDO Quintana
[2023-07-08 20:12] VITALS: BP 152/77; PULSE 83; RESP 18; TEMP 36.8; O2SAT 100
[2023-07-09] MEDS: Morphine 4 MG/ML Syringe IV ×6 (01:06→22:24)
[2023-07-09] MEDS: oxyCODONE 5 MG Tablet PO ×5 (02:45→20:27)
[2023-07-09] MEDS: diazePAM 5 MG Tablet PO ×5 (02:45→20:27)
[2023-07-09 02:47] VITALS: BP 148/89; PULSE 70; RESP 16; TEMP 36.6; O2SAT 100
[2023-07-09] MEDS: Acetaminophen 500 MG Tablet 1000 MG PO ×3 (06:02→22:23)
[2023-07-09 09:37] VITALS: BP 149/86; PULSE 72; RESP 16; TEMP 36.9; O2SAT 99
[2023-07-09] MEDS: 0.9% Saline Lock 10 ML Syringe IV ×3 (10:04→18:16)
[2023-07-09 17:29] VITALS: BP 127/79; PULSE 98; RESP 16; TEMP 36.6; O2SAT 100
[2023-07-09 20:22] VITALS: BP 136/80; PULSE 95; RESP 18; TEMP 36.8; O2SAT 100
[2023-07-10] MEDS: oxyCODONE 5 MG Tablet PO ×5 (00:35→19:47)
[2023-07-10] MEDS: diazePAM 5 MG Tablet PO ×5 (00:35→19:47)
[2023-07-10 02:24] VITALS: BP 135/87; PULSE 79; RESP 16; TEMP 36.9; O2SAT 99
[2023-07-10] MEDS: Morphine 4 MG/ML Syringe IV ×5 (02:27→21:24)
[2023-07-10] MEDS: Acetaminophen 500 MG Tablet 1000 MG PO ×3 (05:22→21:25)
[2023-07-10] MEDS: 0.9% Saline Lock 10 ML Syringe IV ×3 (07:46→16:53)
[2023-07-10 08:44] VITALS: BP 137/94; PULSE 81; RESP 16; TEMP 36.8; O2SAT 98
[2023-07-10 15:51] VITALS: BP 142/97; PULSE 98; RESP 16; TEMP 36.8; O2SAT 100
[2023-07-10 21:20] VITALS: BP 123/77; PULSE 104; RESP 18; TEMP 36.6; O2SAT 100
[2023-07-11] VITALS (8 sets, daily range): BP systolic 112–150; BP diastolic 60–93; PULSE 90–102; RESP 18; TEMP 36.5–37.2; O2SAT 96–99
[2023-07-11] MEDS: diazePAM 5 MG Tablet PO ×5 (00:39→20:03)
[2023-07-11] MEDS: oxyCODONE 5 MG Tablet PO ×5 (00:39→20:02)
[2023-07-11] MEDS: Morphine 4 MG/ML Syringe IV ×5 (02:15→21:05)
[2023-07-11] MEDS: Acetaminophen 500 MG Tablet 1000 MG PO ×3 (05:55→20:01)
[2023-07-11] MEDS: 0.9% Saline Lock 10 ML Syringe IV ×2 (12:25→16:52)
--- NOTE | 2023-07-11 12:41 | PCM.PROGNOTE ---
Subjective Subjective This is a 43-year-old gentleman who is seen s/p application of external fixator to the left lower extremity secondary to tibial and fibular fracture. He states therapy is continuing to work with him to get him up and moving with assistance of a walker nonweightbearing to the left lower extremity. He does state he is still having pain in the left leg. He continues to elevate leg at all times of rest and ice behind knee. He is able to void without difficulty. Eating well. Denies change in status over weekend. Denies constitutional symptoms. Denies further complaints. Objective Data Objective Data Vital Signs: Vital Signs Temp Pulse Resp BP Pulse Ox O2 Del Method O2 Flow Rate 98.9 F 102 H 18 150/83 H 99 Room Air 2 07/11/23 08:05 07/11/23 08:30 07/11/23 08:05 07/11/23 10:30 07/11/23 08:05 07/11/23 08:30 07/05/23 15:58 Oxygen Flow Rate (L/min) [1] 2 Oxygen Flow Rate (L/min) [6] 15 Oxygen Flow Rate (L/min) [5] 15 Oxygen Flow Rate (L/min) [4] 2 Oxygen Flow Rate (L/min) [3] 2 Oxygen Flow Rate (L/min) [2] 2 Oxygen Flow Rate (L/min) 2 Oxygen Delivery Method [1] Nasal Cannula Oxygen Delivery Method [6] Non-Rebreather Oxygen Delivery Method [5] Non-Rebreather Oxygen Delivery Method [4] Nasal Cannula Oxygen Delivery Method [3] Nasal Cannula Oxygen Delivery Method [2] Nasal Cannula Oxygen Delivery Method Room Air Weight: 100.561 kg Body Mass Index (BMI) 31.8 Intake & Output: Intake and Output for Last 24 Hours 07/09/23 07/10/23 07/11/23 23:59 23:59 23:59 Intake Total 750 / 750 850 / 850 600 / 600 Output Total 725 / 725 855 / 855 1925 / 1925 Balance -5 / -5 -1325 / -1325 Lab / Micro Data 07/05/23 17:38 07/05/23 17:38 Physical Exam Const alert, oriented x3 and no apparent distress General Appearance: cooperative and well developed HEENT normocephalic Eyes General Eye: normal appearance of both eyes Neck full ROM General: normal visual inspection Lymph Lymphatic: no lymphadenopathy noted and no lymphedema noted Chest inspection of chest normal Resp normal respiratory effort Cardio regular rate and regular rhythm GI soft to palpation and non-tender Extremity Extremity Narrative: Left lower extremity: Vascular: DP and PT pulses palpable with adequate capillary fill time less than 3 seconds to digits. Normal temperature gradient proximal to distal. Mild to moderate edema about the ankle. No evidence of fracture blister. Dermatological: Skin demonstrates normal turgor. No rashes or lesions, no subcutaneous nodules, no ecchymosis. Skin at lateral ankle does demonstrate moderate soft tissue swelling without evidence of fracture blister. Skin overlying fracture sites is intact without evidence of open wound. Musculoskeletal: External fixator in place to left lower extremity with dressings intact. Muscle strength deferred secondary to fracture. Range of motion of the joints deferred secondary to fracture. Does have pain to palpation about the ankle and anterior tibial shaft. Skin skin turgor normal and no jaundice Neuro oriented x3 Assessment & Plan Assessment/Plan (1) Displaced comminuted fracture of shaft of left tibia, initial encounter for closed fracture: (2) Displaced fracture of lateral malleolus of left fibula: (3) Pain in left lower leg: (4) Ankle fracture: PLAN: Plan Patient seen and evaluated He is s/p application of external fixator left lower extremity. DOS 07/07/2023. POD #4 At this time he is doing better each day, but still does cite some pain to left leg. States external fixator is heavy/cumbersome and poses some difficulty with transition to bedside toilet. Discussed with him that this is expected with this type of fracture/nature of injury in addition to postsurgical status. Discussed that this will improve. Discussed expectations for the following primary ORIF for full understanding of his pain management and thorough aftercare. He is understanding of our discussion. External fixator with compressive dressing intact to left lower extremity. He does demonstrate palpable pedal pulses DP and PT with adequate capillary fill time to the digits. Neurovascular status intact. Radiographic: Radiographs of the left ankle 07/06/23 prereduction demonstrate oblique spiral type comminuted fracture of the distal tibia and fibula with noted angulation. Postreduction demonstrate status post reduction of the distal fibular and distal tibia fractures with improved alignment with bony fragments of the visualized tibia and fibula. A cast has been placed. CT 07/06/23: lower extremity demonstrating a comminuted fracture of the distal shaft of the tibia with fracture line also noted through the lateral aspect of the distal tibia extending to the articular surface of the talotibial articulation. There is also fracture through the posterior malleolus of the tibia. There is a comminuted distal fibular fracture. There is subcutaneous edema of the distal lower leg/ankle anterior laterally. Laboratory data was reviewed and otherwise unremarkable. Vitamin D level WNL. He is to remain nonweightbearing to the left lower extremity with assistance of a walker. Therapy to continue working with him to remain non-weight bearing to left lower extremity. Continue to elevate left lower extremity at all times of rest. May continue to apply ice behind left knee to aid in pain reduction. Pain medication: IV morphine 4 mg every 4-6 hours. Oxycodone p.o. every 4-6 hours. IV Tylenol as needed. May give Ativan 2 mg as needed. I discussed with patient and surgical plan for staged intervention secondary to soft tissue swelling. I discussed the nature of his injury in detail with patient and in addition to the surgical plan. Discussed application of an external fixator for fracture management, this was applied 07/07/2023. Discussed following application of fixator plan for placement in SNF for continued care and pain management. Discussed returning in 2 weeks for primary ORIF of distal tibia and fibular fractures. Following fixation of fractures he will be admitted for postoperative pain management. Discussed possibility of going home following hospital admission for ORIF. He is to remain nonweightbearing to the left lower extremity with assistance of walker. He is currently awaiting SNF placement. Dressing to remain intact for 7 days. Following this, dressings will be taken down and pin sites changed with new jumpstart dressing and compressive wrap dressing applied again to the left lower extremity. SNF to perform dressing change 07/14/2023 with new application of jumpstart dressing and compressive wrap. At this time he does have some improvement in pain. Edema is improving with compressive dressing. Status remains unchanged in terms of fracture s/p application of external fixator. Fracture will need to undergo primary ORIF. Skilled facility necessary for continued aid in fracture care, pin site care of the external fixator, and assistance in transfers with external fixator to prevent falls. This is a planned, staged surgical management case with primary ORIF of the tibia and fibula fractures to follow in 2 weeks. Podiatry will continue to follow. Jr. Kanu Prince.Nirmal. [facility] [phone]
--- NOTE | 2023-07-11 14:48 | CASEMGMT ---
Social Work Sw spoke to Rosamaria Orta at [facility] and obtained claim number for patient's workman compensation claim. Sw completed C-9 form and faxed to [facility]. Confirmation fax received. Rosamaria informed sw that she needs updated progress note from provider. Sw printed off most recent progress note and also faxed to [facility], confirmation fax received. Karo Rg, WINDOWS INFRASTRUCTURE ENGINEER, TEACHER ADVISOR
[2023-07-12] VITALS (7 sets, daily range): BP systolic 116–134; BP diastolic 66–80; PULSE 86–96; RESP 16–18; TEMP 36.6–36.9; O2SAT 98–100
[2023-07-12] MEDS: diazePAM 5 MG Tablet PO ×6 (00:06→23:38)
[2023-07-12] MEDS: oxyCODONE 5 MG Tablet PO ×6 (00:07→23:39)
[2023-07-12] MEDS: Morphine 4 MG/ML Syringe IV ×5 (01:11→21:23)
[2023-07-12] MEDS: Acetaminophen 500 MG Tablet 1000 MG PO ×3 (04:40→21:17)
[2023-07-12] MEDS: 0.9% Saline Lock 10 ML Syringe IV ×3 (11:12→21:07)
--- NOTE | 2023-07-12 14:32 | CHAPLAIN ---
Type of Pastoral Visit ___ Initial Visit _x__ Follow-up Visit ___ On-call Visit ___ General Patient Visit ___ Spiritual Assessment ___ Family Conference ___ Bereavement ___ Rapid Response ___ Code Blue ___ Other (describe below) Pastoral Care Referral From _x__ Patient ___ Family ___ Nurse ___ Physician ___ Psychiatric Mental Health Nurse ___ Mandarin Tutor ___ Other (describe below) Sacrament/Intervention _x__ Active listening ___ Anointing ___ Jew ___ Bereavement ___ Communion ___ Verna exploration ___ _x__ Life review _x__ Prayer ___ Reconciliation ___ Sacrament of Sick _x__ Supportive presence ___ Wedding ___ Other (describe below) Pastoral Comments follow up to this patient who had surgery on major fracture of foot/ankle and reports dealing with pain; pt is expecting to be transferred soon to for rehab; pt talks freely and admits to some depressing feelings and sense of guilt at letting down his family, friends, and neighbors; pt has admitted to crying often and having embarrassment of this with family; pt is very expressive about thanks for the visit and support shown; pt asks questions about chief lifestyle officer role and states gratitude for this service; prayer is welcomed
--- NOTE | 2023-07-12 14:53 | CASEMGMT ---
Discharge Planning Notified by [facility] that they are not a provider for workers comp. Patient requested referral be sent to [facility]. Referral sent via [facility]. Caro Mitchell, Discharge Planning Asst.
--- NOTE | 2023-07-12 15:13 | CASEMGMT ---
Social Work Sw received phone call from Ruthie at [facility] who informed sw that they are not a [facility] provider and are unable to accept patient. Sw met with patient at bedside and informed him of this. Patient reviewed list of SNF providers that was provided to him earlier on in admission. Patient asked that referral be sent to [facility]. Sw informed discharge planning assistance, Caro Mitchell. Karo Rg, DEBT COUNSELOR, DIGITAL COMPOSER
--- NOTE | 2023-07-12 16:11 | CASEMGMT ---
Discharge Planning [facility] declined patient. SW updated. Caro Mitchell, Discharge Planning Asst.
[2023-07-12] MEDS: 0.9% Normal Saline (250mL Bag) 250 ML 15 ML IV (21:18)
[2023-07-13 04:16] VITALS: BP 129/69; PULSE 84; RESP 18; TEMP 36.3; O2SAT 100
[2023-07-13] MEDS: oxyCODONE 5 MG Tablet PO ×5 (04:19→20:37)
[2023-07-13] MEDS: diazePAM 5 MG Tablet PO ×5 (04:20→20:37)
[2023-07-13] MEDS: Acetaminophen 500 MG Tablet 1000 MG PO ×3 (05:12→20:37)
--- NOTE | 2023-07-13 07:49 | PN_ITS ---
Subjective Subjective This is a 43-year-old gentleman who is seen s/p application of external fixator to left lower extremity secondary to tibial fibular fracture. Nursing denies overnight events. Patient states he is still having some pain and discomfort and does not take pain well. Continues to elevate and ice lower extremity. The rapy continuing to work with him daily. Able to continue to void without difficulty and eating well. States he is awaiting his SNF placement and working with social work to aid the process. Denies constitutional symptoms. Denies further complaints. Objective Data Objective Data Vital Signs: Vital Signs Temp Pulse Resp BP Pulse Ox O2 Del Method O2 Flow Rate 97.3 F L 84 18 129/69 H 100 Room Air 2 07/13/23 04:16 07/13/23 04:16 07/13/23 04:16 07/13/23 04:16 07/13/23 04:16 07/13/23 04:16 07/05/23 15:58 Oxygen Flow Rate (L/min) [1] 2 Oxygen Flow Rate (L/min) [6] 15 Oxygen Flow Rate (L/min) [5] 15 Oxygen Flow Rate (L/min) [4] 2 Oxygen Flow Rate (L/min) [3] 2 Oxygen Flow Rate (L/min) [2] 2 Oxygen Flow Rate (L/min) 2 Oxygen Delivery Method [1] Nasal Cannula Oxygen Delivery Method [6] Non-Rebreather Oxygen Delivery Method [5] Non-Rebreather Oxygen Delivery Method [4] Nasal Cannula Oxygen Delivery Method [3] Nasal Cannula Oxygen Delivery Method [2] Nasal Cannula Oxygen Delivery Method Room Air Weight: 100.561 kg Body Mass Index (BMI) 31.8 Intake & Output: Intake and Output for Last 24 Hours 07/11/23 07/12/23 07/13/23 23:59 23:59 23:59 Intake Total 600 / 600 Output Total 2325 / 2325 2175 / 2175 1100 / 1100 Balance -1725 / -1725 -2175 / -2175 -1100 / -1100 Lab / Micro Data 07/05/23 17:38 07/05/23 17:38 Physical Exam Const alert, oriented x3 and no apparent distress General Appearance: cooperative and well developed HEENT normocephalic Eyes General Eye: normal appearance of both eyes Neck full ROM General: normal visual inspection Lymph Lymphatic: no lymphadenopathy noted and no lymphedema noted Chest inspection of chest normal Resp normal respiratory effort Cardio regular rate and regular rhythm GI soft to palpation and non-tender Extremity Extremity Narrative: Left lower extremity: Vascular: DP and PT pulses palpable with adequate capillary fill time less than 3 seconds to digits. Normal temperature gradient proximal to distal. Mild to moderate edema about the ankle. No evidence of fracture blister. Dermatological: Skin demonstrates normal turgor. No rashes or lesions, no subcutaneous nodules, no ecchymosis. Skin at lateral ankle does demonstrate moderate soft tissue swelling without evidence of fracture blister. Skin overlying fracture sites is intact without evidence of open wound. Musculoskeletal: External fixator in place to left lower extremity with dressings intact. Muscle strength deferred secondary to fracture. Range of motion of the joints deferred secondary to fracture. Does have pain to palpation about the ankle and anterior tibial shaft. Skin skin turgor normal and no jaundice Neuro oriented x3 Assessment & Plan Assessment/Plan (1) Displaced comminuted fracture of shaft of left tibia, initial encounter for closed fracture: (2) Displaced fracture of lateral malleolus of left fibula: (3) Pain in left lower leg: (4) Ankle fracture: PLAN: Plan Patient seen and evaluated He is s/p application of external fixator left lower extremity. DOS 07/07/2023. POD #6 At this time he is doing better each day, but still does cite some pain to left leg. States external fixator is heavy/cumbersome and poses some difficulty with transition to bedside toilet. Discussed with him that this is expected with this type of fracture/nature of injury in addition to postsurgical status. Discussed that this will improve. Discussed expectations for the following primary ORIF for full understanding of his pain management and thorough aftercare. He is understanding of our discussion. External fixator with compressive dressing intact to left lower extremity. He does demonstrate palpable pedal pulses DP and PT with adequate capillary fill time to the digits. Neurovascular status intact. Radiographic: Radiographs of the left ankle 07/06/23 prereduction demonstrate oblique spiral type comminuted fracture of the distal tibia and fibula with noted angulation. Postreduction demonstrate status post reduction of the distal fibular and distal tibia fractures with improved alignment with bony fragments of the visualized tibia and fibula. A cast has been placed. CT 07/06/23: lower extremity demonstrating a comminuted fracture of the distal shaft of the tibia with fracture line also noted through the lateral aspect of the distal tibia extending to the articular surface of the talotibial articulation. There is also fracture through the posterior malleolus of the tibia. There is a comminuted distal fibular fracture. There is subcutaneous edema of the distal lower leg/ankle anterior laterally. Laboratory data was reviewed and otherwise unremarkable. Vitamin D level WNL. He is to remain nonweightbearing to the left lower extremity with assistance of a walker. Therapy to continue working with him to remain non-weight bearing to left lower extremity. Continue to elevate left lower extremity at all times of rest. May continue to apply ice behind left knee to aid in pain reduction. Pain medication: Oxycodone p.o. every 4-6 hours. 600 mg Motrin every 4-6 hours, IV Tylenol as needed. May give Ativan 2 mg as needed. I discussed with patient and surgical plan for staged intervention secondary to soft tissue swelling. I discussed the nature of his injury in detail with patient and in addition to the surgical plan. Discussed application of an external fixator for fracture management, this was applied 07/07/2023. Discussed following application of fixator plan for placement in SNF for continued care and pain management. Discussed returning in 2 weeks for primary ORIF of distal tibia and fibular fractures. Following fixation of fractures he will be admitted for postoperative pain management. Discussed possibility of going home following hospital admission for ORIF. He is to remain nonweightbearing to the left lower extremity with assistance of walker. He is currently awaiting SNF placement. Dressing to remain intact for 7 days. Following this, dressings will be taken down and pin sites changed with new jumpstart dressing and compressive wrap dressing applied again to the left lower extremity. SNF to perform dressing change 07/14/2023 with new application of jumpstart dressing and compressive wrap. At this time he does have some improvement in pain. Edema is improving with compressive dressing. Status remains unchanged in terms of fracture s/p application of external fixator. Fracture will need to undergo primary ORIF. Skilled facility necessary for continued aid in fracture care, pin site care of the external fixator, and assistance in transfers with external fixator to prevent falls. This is a planned, staged surgical management case with primary ORIF of the tibia and fibula fractures to follow in 2 weeks. Podiatry will continue to follow. Sudheer Gorman Jr. D.P.M. [facility] [phone]
[2023-07-13] MEDS: Ibuprofen 600 MG Tablet PO ×2 (08:28→16:39)
[2023-07-13 08:40] VITALS: BP 130/87; PULSE 90; RESP 18; TEMP 36.7; O2SAT 97
--- NOTE | 2023-07-13 10:18 | CASEMGMT ---
Social Work SW met with pt and informed that [facility] has declined to accept. Pt requesting referrals be sent to [facility] and [facility]. Referrals to be sent. left with SB Blank at [facility] to check on status of C9 and SNF approval. BIENVENIDO Quintana
--- NOTE | 2023-07-13 11:01 | CASEMGMT ---
Discharge Planning Referral sent to [facility] and [facility] via [facility]. Caro Mitchell, Discharge Planning Asst.
--- NOTE | 2023-07-13 11:20 | CASEMGMT ---
Discharge Planning [facility]. SW updated. Caro Mitchell, Discharge Planning Asst.
--- NOTE | 2023-07-13 11:27 | CASEMGMT ---
Social Work Worker from the [place] [employer] here to evaluate pt for admission to SNF. Information will be submitted today for [facility] approval. BIENVENIDO Quintana
--- NOTE | 2023-07-13 11:44 | CASEMGMT ---
Discharge Planning A list of SNF?providers requested by patient was created in [employer].? This list was provided to the SW. Caro Mitchell, Discharge Planning Asst.
--- NOTE | 2023-07-13 11:51 | CASEMGMT ---
Addendum entered by Caro Mitchell 07/13/23 11:56: Discharge Planning Referrals to [facility] and [facility] sent via [facility]. Caro Mitchell, Discharge Planning Asst. Original Note: Discharge Planning Patient notified of recent facility declines. He is agreeable to referrals being sent to [facility] and [facility]. Caro Mitchell, Discharge Planning Asst.
--- NOTE | 2023-07-13 12:10 | CASEMGMT ---
Discharge Planning Patient has been accepted by [facility]. Awaiting response on when he can admit. Caro Mitchell, Discharge Planning Asst.
--- NOTE | 2023-07-13 14:00 | CASEMGMT ---
Social Work SW spoke with Rosamaria at [facility]. Pt has been approved to go to [facility] and approval is through 07/29. Physician updated and pt can discharge today. PASRR completed in [facility]. SW met with pt and updated and pt is agreeable to go to [facility] today. Pt states he has notified his significant other Kristi. Transportation to be arranged once physician completes orders. Disposition: [facility], skilled level of care BIENVENIDO Quintana
--- NOTE | 2023-07-13 14:22 | PCM.TXEXTCAR ---
Diet Diet Order/Speech Therapy: 07/07/23 19:47 Diet: Regular - General Is pt able to select menu?: Yes Wound(s) :LLE: Wound Type: lle fracture Dressing Change: Jump Start Dressing around pin sites with compression wrap over left leg Lt lower leg: Wound Type: Surgical Incision (Jump start dressing around pin site to be changed on 07/14/23. Jumpstart can remain intact at pin site for 7 days.) Dressing Change: Dry Sterile Dressing (Change jumpstart dressing around pin site on 07/14/23. May change compression dressing as needed for strikethrough.) Therapies Weight Bearing: Non weight bearing (Remain nonweightbearing to left lower extremity) Extremity Affected:: Left Lower (Elevate left lower extremity at all times of rest) Physical Therapy: Eval and Treat (May continue to work with physical therapy for assistance in transfers with assistance of walker to remain nonweightbearing to left lower extremity with external fixator applied to left lower leg.) Problem/Diagnosis (1) Displaced comminuted fracture of shaft of left tibia, initial encounter for closed fracture: Status: Acute Code(s): S82.252A - Displaced comminuted fracture of shaft of left tibia, initial encounter for closed fracture Plan: Patient had external fixator applied to left lower extremity on 07/07/2023. Fixator to remain in place for 1 to 2 weeks while soft tissue edema continues to decrease in pin care of external fixator. Plan is to return to hospital in 2 weeks for direct admission with Dr. Gorman with plan to undergo primary ORIF of left tibial fracture and left fibular fracture. Following surgical fixation plan will be to discharge home and will follow in office for postoperative care. On the week of 07/25/2023 patient should return to [facility] for admission with plan to undergo primary ORIF, Dr. Gorman should be notified prior to transport to hospital. (2) Displaced fracture of lateral malleolus of left fibula: Status: Acute Code(s): S82.62XA - Displaced fracture of lateral malleolus of left fibula, initial encounter for closed fracture (3) Pain in left lower leg: Status: Acute Code(s): M79.662 - Pain in left lower leg (4) Ankle fracture: Status: Acute Code(s): S82.899A - Other fracture of unspecified lower leg, initial encounter for closed fracture Plan Patient seen and evaluated He is s/p application of external fixator left lower extremity. DOS 07/07/2023. POD #6 At this time he is doing better each day, but still does cite some pain to left leg. States external fixator is heavy/cumbersome and poses some difficulty with transition to bedside toilet. Discussed with him that this is expected with this type of fracture/nature of injury in addition to postsurgical status. Discussed that this will improve. Discussed expectations for the following primary ORIF for full understanding of his pain management and thorough aftercare. He is understanding of our discussion. External fixator with compressive dressing intact to left lower extremity. He does demonstrate palpable pedal pulses DP and PT with adequate capillary fill time to the digits. Neurovascular status intact. Radiographic: Radiographs of the left ankle 07/06/23 prereduction demonstrate oblique spiral type comminuted fracture of the distal tibia and fibula with noted angulation. Postreduction demonstrate status post reduction of the distal fibular and distal tibia fractures with improved alignment with bony fragments of the visualized tibia and fibula. A cast has been placed. CT 07/06/23: lower extremity demonstrating a comminuted fracture of the distal shaft of the tibia with fracture line also noted through the lateral aspect of the distal tibia extending to the articular surface of the talotibial articulation. There is also fracture through the posterior malleolus of the tibia. There is a comminuted distal fibular fracture. There is subcutaneous edema of the distal lower leg/ankle anterior laterally. Laboratory data was reviewed and otherwise unremarkable. Vitamin D level WNL. He is to remain nonweightbearing to the left lower extremity with assistance of a walker. Therapy to continue working with him to remain non-weight bearing to left lower extremity. Continue to elevate left lower extremity at all times of rest. May continue to apply ice behind left knee to aid in pain reduction. Pain medication: Oxycodone p.o. every 4-6 hours. 600 mg Motrin every 4-6 hours, IV Tylenol as needed. May give Ativan 2 mg as needed. Discharge medication: Oxycodone q 4-6hrs PRN pain. I discussed with patient and surgical plan for staged intervention secondary to soft tissue swelling. I discussed the nature of his injury in detail with patient and in addition to the surgical plan. Discussed application of an external fixator for fracture management, this was applied 07/07/2023. Discussed following application of fixator plan for placement in SNF for continued care and pain management. Discussed returning in 2 weeks for primary ORIF of distal tibia and fibular fractures. Following fixation of fractures he will be admitted for postoperative pain management. Discussed possibility of going home following hospital admission for ORIF. He is to remain nonweightbearing to the left lower extremity with assistance of walker. He is being transferred to SNF at [facility]. Dressing to remain intact for 7 days. Following this, dressings will be taken down and pin sites changed with new jumpstart dressing and compressive wrap dressing applied again to the left lower extremity. SNF to perform dressing change 07/14/2023 with new application of jumpstart dressing and compressive wrap. At this time he does have some improvement in pain. Edema is improving with compressive dressing. Status remains unchanged in terms of fracture s/p application of external fixator. Fracture will need to undergo primary ORIF. Skilled facility necessary for continued aid in fracture care, pin site care of the external fixator, and assistance in transfers with external fixator to prevent falls. This is a planned, staged surgical management case with primary ORIF of the tibia and fibula fractures to follow in 2 weeks. Podiatry will continue to follow. Jr. Zehra PrinceP.M. [facility] [phone] Allergies/Procedures Done in Hospital Allergies No Known Allergies Allergy (Verified 07/05/23 13:40) Procedures: - (Application of external fixator left lower extremity on 07/07/2023.) Type of Care/Length of Stay Estimated LOS: Convalescent Care Less Than 30 days Type of Care Needed: Skilled Rehab Potential: Good Prognosis: Good Additional Orders/Day of Discharge Day of Discharge: 07/13/23 Dietary and Speech Recommendations Dietitian Recommendations/Changes: No dietary restrictions. Resume normal diet Follow Up Care Please Follow Up With: Sudheer Gorman DPM When: Week of 07/25/2023 return to [facility] for admission Discharge Plan Admission Admit Date/Time: 07/05/23 18:51 Attending Provider: Sudheer Gorman Primary Care Provider: Care Physician,No Primary Instructions Patient Instructions: ED Ankle Fracture Additional Instructions / Restrictions: As discussed, please call to Sherif's office in the morning. Let them know you are seen in the emergency room with an ankle fracture and he wants to see you to discuss surgical options. Do not bear any weight on your left ankle. Please elevate your leg and keep ice packs on it. Discharge Orders/Prescriptions Prescriptions: New oxycodone-acetaminophen [Percocet] 5-325 mg tablet 1 tab PO Q4H PRN (Reason: pain) 3 Days Qty: 20 0RF Referrals / Follow Up: Sudheer Gorman DPM [Med Staff - Active Staff] - As soon as possible Care Physician,No Primary [Primary Care Provider] - Disposition Disposition (needs filled in before D/C Order can be placed): Group Home Facility
--- NOTE | 2023-07-13 14:40 | PCM.DC.SUM ---
Providers Date of Admission: 07/05/23 Date of Discharge: 07/13/23 Primary Care Physician: No Primary Care Phys Reason For Visit: Ankle Fracture/Pilon Fracture left lower extremity Diagnosis Discharge Diagnosis (1) Displaced comminuted fracture of shaft of left tibia, initial encounter for closed fracture: Status: Acute Code(s): S82.252A - Displaced comminuted fracture of shaft of left tibia, initial encounter for closed fracture Plan: Patient had external fixator applied to left lower extremity on 07/07/2023. Fixator to remain in place for 1 to 2 weeks while soft tissue edema continues to decrease in pin care of external fixator. Plan is to return to hospital in 2 weeks for direct admission with Dr. Gorman with plan to undergo primary ORIF of left tibial fracture and left fibular fracture. Following surgical fixation plan will be to discharge home and will follow in office for postoperative care. On the week of 07/25/2023 patient should return to [facility] for admission with plan to undergo primary ORIF, Dr. Gorman should be notified prior to transport to hospital. (2) Displaced fracture of lateral malleolus of left fibula: Status: Acute Code(s): S82.62XA - Displaced fracture of lateral malleolus of left fibula, initial encounter for closed fracture (3) Pain in left lower leg: Status: Acute Code(s): M79.662 - Pain in left lower leg (4) Ankle fracture: Status: Acute Code(s): S82.899A - Other fracture of unspecified lower leg, initial encounter for closed fracture Plan Patient seen and evaluated He is s/p application of external fixator left lower extremity. DOS 07/07/2023. POD #6 At this time he is doing better each day, but still does cite some pain to left leg. States external fixator is heavy/cumbersome and poses some difficulty with transition to bedside toilet. Discussed with him that this is expected with this type of fracture/nature of injury in addition to postsurgical status. Discussed that this will improve. Discussed expectations for the following primary ORIF for full understanding of his pain management and thorough aftercare. He is understanding of our discussion. External fixator with compressive dressing intact to left lower extremity. He does demonstrate palpable pedal pulses DP and PT with adequate capillary fill time to the digits. Neurovascular status intact. Radiographic: Radiographs of the left ankle 07/06/23 prereduction demonstrate oblique spiral type comminuted fracture of the distal tibia and fibula with noted angulation. Postreduction demonstrate status post reduction of the distal fibular and distal tibia fractures with improved alignment with bony fragments of the visualized tibia and fibula. A cast has been placed. CT 07/06/23: lower extremity demonstrating a comminuted fracture of the distal shaft of the tibia with fracture line also noted through the lateral aspect of the distal tibia extending to the articular surface of the talotibial articulation. There is also fracture through the posterior malleolus of the tibia. There is a comminuted distal fibular fracture. There is subcutaneous edema of the distal lower leg/ankle anterior laterally. Laboratory data was reviewed and otherwise unremarkable. Vitamin D level WNL. He is to remain nonweightbearing to the left lower extremity with assistance of a walker. Therapy to continue working with him to remain non-weight bearing to left lower extremity. Continue to elevate left lower extremity at all times of rest. May continue to apply ice behind left knee to aid in pain reduction. Pain medication: Oxycodone p.o. every 4-6 hours. 600 mg Motrin every 4-6 hours, IV Tylenol as needed. May give Ativan 2 mg as needed. I discussed with patient and surgical plan for staged intervention secondary to soft tissue swelling. I discussed the nature of his injury in detail with patient and in addition to the surgical plan. Discussed application of an external fixator for fracture management, this was applied 07/07/2023. Discussed following application of fixator plan for placement in SNF for continued care and pain management. Discussed returning in 2 weeks for primary ORIF of distal tibia and fibular fractures. Following fixation of fractures he will be admitted for postoperative pain management. Discussed possibility of going home following hospital admission for ORIF. He is to remain nonweightbearing to the left lower extremity with assistance of walker. He is currently awaiting SNF placement. Dressing to remain intact for 7 days. Following this, dressings will be taken down and pin sites changed with new jumpstart dressing and compressive wrap dressing applied again to the left lower extremity. SNF to perform dressing change 07/14/2023 with new application of jumpstart dressing and compressive wrap. At this time he does have some improvement in pain. Edema is improving with compressive dressing. Status remains unchanged in terms of fracture s/p application of external fixator. Fracture will need to undergo primary ORIF. Skilled facility necessary for continued aid in fracture care, pin site care of the external fixator, and assistance in transfers with external fixator to prevent falls. This is a planned, staged surgical management case with primary ORIF of the tibia and fibula fractures to follow in 2 weeks. Podiatry will continue to follow. Jr. Zehra PrinceP.M. [facility] [phone] Medications at Discharge Home Medications oxycodone-acetaminophen 5 mg-325 mg tablet (Percocet) 1 tab PO Q4H PRN pain 3 days #20 tabs 07/05/23 Hospital Course Operations - (Application of external fixator left lower extremity 07/07/2023) Procedures None Summary of Care Provided Hospital Course: Admitted for pilon fracture left lower extremity on 07/05/2023 underwent application of external fixator 07/07/2023. Continued stay for pain control and awaiting placement in skilled facility. Patient transferred to skilled facility, [facility] 07/13/2023. Plan to return to hospital in 2 weeks to undergo primary ORIF of the left lower extremity pilon fracture. At that time plan is to stay postsurgical fixation for pain control with discharge home. Physical Exam Const alert, oriented x3 and no apparent distress General Appearance: cooperative and well developed HEENT normocephalic Eyes General Eye: normal appearance of both eyes Neck full ROM General: normal visual inspection Lymph Lymphatic: no lymphadenopathy noted and no lymphedema noted Chest inspection of chest normal Resp normal respiratory effort Cardio regular rate and regular rhythm GI soft to palpation and non-tender Extremity Extremity Narrative: Left lower extremity: Vascular: DP and PT pulses palpable with adequate capillary fill time less than 3 seconds to digits. Normal temperature gradient proximal to distal. Mild to moderate edema about the ankle. No evidence of fracture blister. Dermatological: Skin demonstrates normal turgor. No rashes or lesions, no subcutaneous nodules, no ecchymosis. Skin at lateral ankle does demonstrate moderate soft tissue swelling without evidence of fracture blister. Skin overlying fracture sites is intact without evidence of open wound. Musculoskeletal: External fixator in place to left lower extremity with dressings intact. Muscle strength deferred secondary to fracture. Range of motion of the joints deferred secondary to fracture. Does have pain to palpation about the ankle and anterior tibial shaft. Skin skin turgor normal and no jaundice Neuro oriented x3 Weight / BMI Weight Weight: 100.561 kg Body Mass Index (BMI) 31.8 ABG / Lab / Microbiology Data 07/05/23 17:38 07/05/23 17:38 D/C Instructions Discharge Diet: No restrictions Discharge Activity: May Not Drive, May Shower (May shower with cast bag covering the external fixator of left lower extremity.) and Use Walker Weight Bearing Status: No weight bearing (Please remain nonweightbearing to left lower extremity with assistance of a walker) Keep extremity elevated above heart level: Left Leg (Elevate left lower extremity at all times of rest. May pad external fixator during elevation with pillows) Call your doctor if your incision/area has: Increased Pain/ Swelling (Patient does continue to complain of pain. Call if pain increases beyond current level.), Increased Redness and Foul Smelling Discharge Call your doctor if you observe: Fever of 101 or Higher, Shortness of breath, Chest pain and Calf discomfort Change Dressing in: 07/14/23 Cleanse incision/area with: Do not get Incision Wet, Keep Dressing Clean & Dry and - (Clean about the pin sites with normal sterile saline and apply the jumpstart dressing on 07/14/2023. Following new jumpstart dressing a compression wrap consisting of Kerlix and Francisco to be applied to the left lower extremity. This will remain in place for 7 days.) Please Follow Up With: Sudheer Gorman DPM When: Return to hospital week of 07/25/2023 for direct admission with plan to undergo primary ORIF of Tibial and Fibular fractures of left lower extremity. Call Dr. Gorman prior to transport to Hospital. Meaningful Use Info Meaningful Use Diagnoses (Choose all that apply): None applicable Discharge Plan Admission Admit Date/Time: 07/05/23 18:51 Attending Provider: Sudheer Gorman Primary Care Provider: Care Physician,No Primary Instructions Patient Instructions: ED Ankle Fracture Additional Instructions / Restrictions: As discussed, please call to Sherif's office in the morning. Let them know you are seen in the emergency room with an ankle fracture and he wants to see you to discuss surgical options. Do not bear any weight on your left ankle. Please elevate your leg and keep ice packs on it. Discharge Orders/Prescriptions Prescriptions: New oxycodone-acetaminophen [Percocet] 5-325 mg tablet 1 tab PO Q4H PRN (Reason: pain) 3 Days Qty: 20 0RF Referrals / Follow Up: Sudheer Gorman DPM [Med Staff - Active Staff] - As soon as possible Care Physician,No Primary [Primary Care Provider] - Disposition Disposition (needs filled in before D/C Order can be placed): Snf Facility
--- NOTE | 2023-07-13 15:10 | CASEMGMT ---
Discharge Planning Patient notified of todays discharge. Green sheet and transport form placed on chart. Caro Mitchell, Discharge Planning Asst.
[2023-07-13 15:30] VITALS: BP 129/82; PULSE 86; RESP 18; TEMP 36.7; O2SAT 97
[2023-07-13 16:30] VITALS: BP 129/82; PULSE 86; RESP 16; TEMP 36.7; O2SAT 97
--- NOTE | 2023-07-13 17:52 | NURSING ---
report called to [facility] [phone]
[2023-07-13 20:39] VITALS: BP 137/82; PULSE 97; RESP 18; TEMP 37.2; O2SAT 95
== END 2023-07-13 20:50 | disposition skilled nursing facility (03) ==
LOC: ED 16:57 → MS3 19:09
PROVIDERS: Admitting Provider Student in an Organized Health Care Education/Training Program; Emergency Provider Emergency Medicine; Visit Provider Student in an Organized Health Care Education/Training Program
PROC: (CPT 20692; principal; 2023-07-07 13:40)
DX: S82.252A Displaced comminuted fracture of shaft of left tibia, initial encounter for closed fracture (principal); S82.62XA Displaced fracture of lateral malleolus of left fibula, initial encounter for closed fracture; Z23 Encounter for immunization; W17.89XA Other fall from one level to another, initial encounter; Y93.39 Activity, other involving climbing, rappelling and jumping off; Y99.0 Civilian activity done for income or pay; Y92.89 Other specified places as the place of occurrence of the external cause
CPT/HCPCS: 27752; 20692; 01462; 36415; 73600; 73610; 73700; 76000; 80048; 80076; 82306; 85025; 85610; 85730; 94668; 96361; 96372; 96374; 96375; 96376; 97110; 97116; 97162; 97166; 97530; 97535; 99152; 99221; 99285; C1713; J7030; J7050; J7120; 90686; A4216; G0378; J2405

== ENCOUNTER 2023-07-27 13:40 | Inpatient (IN) | payer OTHER, SELFPAY ==
[2023-07-27] MEDS: Lactated Ringers 1,000 ML 125 ML IV ×2 (14:52→21:50)
[2023-07-27] MEDS: Oxycodone/Apap 5/325 Tablet PO ×2 (14:57→21:37)
[2023-07-27 15:03] LABS: Absolute Neutrophil Count 5.2 X10^3/uL (2.0-7.7); Basophil# 0.02 X10^3/uL; Basophil% 0.3 % (0-1); Eosinophil# 0.13 X10^3/uL; Eosinophils% 1.8 % (0-5); Hematocrit 38.1 % (40-54); Hemoglobin 12.8 g/dL (13.0-16.5); Lymphocyte % 18.2 % (19-41); Mean Corp Hgb Conc 33.6 g/dL (32-36); Mean Corpuscular Hgb 30.5 pg (27.0-32.0); Mean Corpuscular Volume 90.9 fL (80-94); Mean Platelet Vol. 10.5 fl (6.2-12.0); Monocyte# 0.49 X10^3/uL; Monocyte% 6.9 % (0-10); NRBC Flagged by Analyzer 0 % (0-5); Neutrophil # 5.19 X10^3/uL (2.7-7.7); Neutrophil % 72.5 % (47-70); Platelet Count 224 K/mm3 (150-450); RBC Distribution Width CV 12.8 % (11.6-14.6); RBC Distribution Width SD 42.3 fl (35.1-43.9); Red Blood Count 4.19 M/mm3 (4.6-6.2); White Blood Count 7.2 K/mm3 (4.4-11.0)
[2023-07-27 15:06] VITALS: BMI 29.5
[2023-07-27 15:19] LABS: Anion Gap 6 (5-15); BUN 18 mg/dL (7-18); BUN/Creat Ratio 20.1 RATIO (10-20); Calcium,Total 9.1 mg/dL (8.5-10.1); Chloride 105 mmol/L (98-107); EST Glomerular Filtration Rate 98 mL/min (>60); Est Glom Filt Rate - Afr Amer 119 mL/min (>60); Estimated Creatinine Clearance 109.27 ml/min; Glucose 106 mg/dL (74-106); Sodium Level 141 mmol/L (136-145)
--- NOTE | 2023-07-27 17:28 | HP.PCM_ITS ---
HPI - General General Date of Admission: 07/27/23 Date of Service: 07/27/23 Chief Complaint: Tibial fracture/fibular fracture/pilon fracture left lower extremity HPI Narrative PERNELL TIRADO, is a 43 M who presents to [facility] on 07/27/2023 with left lower extremity fracture involving tibia and fibula. DOI: 07/05/2023. He underwent application of external fixator 07/07/2023. Has been nonweightbearing to the left lower extremity since fracture and underwent placement in SNF for care of pin sites as swelling reduced post fracture. He returns to [facility] to undergo primary ORIF of tibial and fibular fracture with removal of external fixator of the left lower extremity. [facility] Medical History Anxiety Depression Migraines Non-smoker Medical History no medical history Home Medications oxycodone-acetaminophen 5 mg-325 mg tablet (Percocet) 1 tab PO Q4H PRN pain 3 days #20 tabs 07/05/23 [Rx Last Taken Unknown] Allergy/AdvReac Type Severity Reaction Status Date / Time No Known Allergies Allergy Verified 07/05/23 13:40 Social History Smoking Status: Never smoker ROS Constitutional Constitutional: Denies body ache(s), chills, fatigue, fever(s) or malaise Eyes Eyes: Denies change in vision, diplopia or eye pain ENT HEENT: Denies dizziness, nasal congestion, nasal discharge or sore throat Cardiovascular Cardiovascular: Denies chest pain, claudication, cold extremities or dyspnea at rest Respiratory/Chest Respiratory/Chest: Denies dyspnea, shortness of breath at rest or wheezing Gastrointestinal Gastrointestinal: Denies abdominal pain, constipation, diarrhea, nausea or v omiting Genitourinary Genitourinary: Denies dysuria, hematuria, urinary frequency, urinary hesitancy, urinary incontinence or urinary urgency Musculoskeletal Musculoskeletal: Denies joint pain, joint stiffness or joint swelling Integumentary Integumentary: Denies lesions, pruritus or rash Neurologic Neurologic: Denies dizziness, numbness or seizures Psychiatric Psychiatric: Reports anxiety and depression Endocrine Endocrinology: Denies cold intolerance or heat intolerance Hematologic/Lymphatic Hematologic/Lymphatic: Denies easy bleeding, easy bruising or lymphadenopathy Allergic/Immunologic Allergic/Immunologic: Denies wheezing Vital Signs Vital Signs Vital Signs: Weight Weight: 93.6 kg Body Mass Index (BMI) 29.5 Physical Exam Const alert, oriented x3 and no apparent distress General Appearance: cooperative and well developed HEENT normocephalic Eyes General Eye: normal appearance of both eyes Neck General: normal visual inspection Lymph Lymphatic: no lymphadenopathy noted and no lymphedema noted Chest inspection of chest normal Resp normal respiratory effort Cardio regular rate and regular rhythm GI soft to palpation and non-tender Extremity Extremity Narrative: Vascular: DP and PT pulses palpable with adequate capillary fill time less than 3 seconds to digits. Normal temperature gradient proximal to distal. Edema well controlled about the foot and ankle. No evidence of fracture blister. Dermatological: Skin demonstrates normal turgor. No rashes or lesions, no subcutaneous nodules, no ecchymosis, no evidence of fracture blister. No soft tissue edema noted. Pin sites are clean, no signs of infection. Musculoskeletal: Muscle strength and range of motion deferred secondary to fracture and external fixator placement. External fixator in place to the left lower extremity. Skin no rashes or lesions noted, skin turgor normal and no jaundice Neuro oriented x3 and moves all extremities Results Lab / Micro Data 07/27/23 14:36 07/27/23 14:36 Labs: Laboratory Results - last 24 hr 07/27/23 14:36: WBC 7.2, RBC 4.19 L, Hgb 12.8 L, Hct 38.1 L, MCV 90.9, MCH 30.5, MCHC 33.6, RDW Std Deviation 42.3, RDW Coeff of Connie 12.8, Plt Count 224, MPV 10.5, Immature Gran % (Auto) 0.300, Neut % (Auto) 72.5 H, Lymph % (Auto) 18.2 L, [place] % (Auto) 6.9, Eos % (Auto) 1.8, Baso % (Auto) 0.3, Absolute Neuts (auto) 5.2, Absolute Lymphs (auto) 1.30, Nucleated RBC % 0, Sodium 141, Potassium 4.0, Chloride 105, Carbon Dioxide 30.0, Anion Gap 6, BUN 18, Creatinine 0.90, Estim Creat Clear Calc 109.27, Est GFR (MDRD) Af Amer 119, Est GFR (MDRD) Non-Af 98, BUN/Creatinine Ratio 20.1 H, Glucose 106, Calcium 9.1 Assessment & Plan Assessment/Plan (1) Displaced comminuted fracture of shaft of left tibia, initial encounter for closed fracture: (2) Displaced fracture of lateral malleolus of left fibula: (3) Ankle fracture: (4) Pain in left lower leg: PLAN: Plan Patient seen and evaluated He is s/p application of external fixator secondary to tibial and fibular fractures of the left lower extremity. DOS: 07/07/2023. POD #20 External fixator applied to left lower extremity with compressive dressing intact. Dressing removed and pin sites examined demonstrating no signs of infection. Edema well controlled. Dressings reapplied to left lower extremity. He will continue to elevate left lower extremity at all times of rest. He will remain nonweightbearing to the left lower extremity with assistance of crutches/walker Radiographic images from 07/05/2023 were reviewed in addition to CT scan from 07/05 and postsurgical images from 07/07/2023 with application of external fixator. There is noted oblique spiral type comminuted fracture of the distal tibia and fibula with noted angulation postreduction demonstrating improved alignment. Pain medication: Oxycodone p.o. every 6 hours as needed pain. I discussed with the patient plan for surgical intervention tomorrow 07/28/2023 consisting of removal of external fixator of the left lower extremity, debridement of bone, and delayed primary closure of pin sites. Also discussed primary ORIF of distal tibia and fibular fracture in detail. Following fixation of fractures he will stay for pain control with plan to discharge home with continued postop care in office. I discussed the surgical plan in detail and patient does understand the nature of his traumatic injury and understands that this is part 2 of the sequential approach of fracture management. He remains in understanding that this is a nonelective procedure with need for fixation. I discussed the risk and complications of the procedure in detail. Discussed the risk and complications include but are not limited to the following: Pain, continued pain, complex regional pain syndrome, right a/numbness, infection, edema, dehiscence, delayed wound healing/nonhealing, delayed union/nonunion, malunion, overcorrection/under correction, painful hardware/symptomatic hardware, posttraumatic arthritis, diff iculty wearing shoes/boots, inability to wear shoes/boots, contracture, decreased range of motion/ankle stiffness, addiction to pain medication, blood clot, allergic reaction, loss of function, loss of limb, loss of life. Patient voices understanding of these risks. Patient understands necessity of fracture fixation and the surgical plan. Consent for removal of external fixator left lower extremity, debridement of bone, delayed primary closure, and primary ORIF of tibia and fibular fractures was obtained and patient signed freely. Plan for surgical intervention of removal of external fixator left lower extremity, debridement of bone, delayed primary closure, and primary ORIF of tibia and fibular fractures tomorrow, 07/28/23 at 10 AM. Patient to remain n.p.o. overnight. Patient also to remain nonweightbearing to the left lower extremity. Podiatry will continue to follow Jr. Zehra [facility]P.M[facility] [phone]
[2023-07-27 20:29] VITALS: RESP 16
[2023-07-27 21:00] VITALS: O2SAT 100
[2023-07-27 21:39] VITALS: BP 126/80; PULSE 89; RESP 16; TEMP 36.7; O2SAT 100
[2023-07-28] VITALS (10 sets, daily range): BP systolic 122–146; BP diastolic 73–98; PULSE 81–107; RESP 16–18; TEMP 36.4–37.1; O2SAT 93–100; BMI 29.5
[2023-07-28] MEDS: Oxycodone/Apap 5/325 Tablet PO (04:07)
[2023-07-28] MEDS: Lactated Ringers 1,000 ML 125 ML IV ×2 (04:08→18:23)
[2023-07-28] MEDS: Cefazolin 2 GM in 0.9% Normal Saline (100mL Bag) 100 ML IV (10:59)
--- NOTE | 2023-07-28 11:40 | RAD_ITS ---
INDICATION: Bimalleolar fracture fixation EXAMINATION/TECHNIQUE: X-RAY - LEFT XR Ankle 2 Views 9 VIEWS COMPARISON: 07/07/2023 FINDINGS: 9 fluoroscopic spot films obtained during ORIF bimalleolar fractures left ankle. For procedure details refer to the operative notes. Total fluoroscopic time: 209 seconds. RAD/Ankle 2 Views IMPRESSION: ORIF bimalleolar fractures left ankle. Electronically Signed: Lior Longoria MD at 17:21 EDT ,
--- NOTE | 2023-07-28 13:55 | CASEMGMT ---
Pt off of floor at this time. RN CM to complete assessment after pt returns from surgery.
--- NOTE | 2023-07-28 14:36 | CHAPLAIN ---
Type of Pastoral Visit ___ Initial Visit ___ Follow-up Visit ___ On-call Visit ___ General Patient Visit ___ Spiritual Assessment ___ Family Conference ___ Bereavement ___ Rapid Response ___ Code Blue _x__ Other (describe below) Pastoral Care Referral From _x__ Patient ___ Family ___ Nurse ___ Physician ___ Addictions Recovery Specialist ___ Bar Waiter/Waitress ___ Other (describe below) Sacrament/Intervention ___ Active listening ___ Anointing ___ Religious ___ Bereavement ___ Communion ___ Verna exploration ___ ___ Life review ___ Prayer ___ Reconciliation ___ Sacrament of Sick ___ Supportive presence ___ Wedding ___ Other (describe below) Pastoral Comments patient was not in the room; a calling card for pt is left with his things
--- NOTE | 2023-07-28 16:25 | PCM.OPRPT ---
Problems Associated Problem List Diagnoses (1) Displaced fracture of lateral malleolus of left fibula: (2) Displaced comminuted fracture of shaft of left tibia, initial encounter for closed fracture: (3) Pain in left lower leg: (4) Ankle fracture: Report of Operation Date of Procedure: 07/28/23 Pre-Operative Diagnosis: 1. Comminuted Tibial Fracture and Comminuted Fibular Fracture Left Lower Extremity 2. Pain Left Lower Extremity Post-Operative Diagnosis: 1. Comminuted Tibial Fracture and Comminuted Fibular Fracture Left Lower Extremity 2. Pain Left Lower Extremity Surgery/Procedure Performed:: 1. Primary ORIF of Tibial and Fibular Fractures Left Lower Extremity 2. Removal of External Fixator Left Lower Extremity 3. Debridement of bone Left Lower Extremity 4. Delayed Primary closure Left Lower Extremity 5. Repair of Syndesmosis Left Lower Extremity Description of Surgical Findings:: See operative note for findings Surgeon: Sudheer Gorman pantograph machine set up operator: Yosef Hernandez DPM PGY-3 pantograph machine set up operator: Claribel Boland DPM PGY-2 Type of Anesthesia: General/Regional (Popliteal block left lower extremity) Specimen's removed: None Drains: None Estimated Blood Loss (mL): < 50 mL Description of Procedure: HPI/indication: Patient is a 43-year-old male with a tibial and fibular fracture of the left lower extremity. He did undergo application of external fixator to the left lower extremity on 07/07/2023. He returns for primary ORIF of tibial and fibular fractures post resolution of edema. Patient has remained nonweightbearing to the left lower extremity in SNF unit. Patient is aware of the nature of his injury and staged surgical intervention for fracture repair. He is understanding that this is a nonelective procedure with need for fixation. I have discussed risks and complications of the procedure in detail. Discussed the risk and complications include but are not limited to the following: Pain, continued pain, complex regional pain syndrome, neuritis/numbness, infection, edema, dehiscence, delayed wound healing/nonhealing, delayed union/nonunion, malunion, overcorrection/under correction, painful hardware/symptomatic hardware, posttraumatic arthritis, difficulty wearing shoes/boots, inability to wear shoes/boots, contracture, decreased range of motion, ankle stiffness, addiction to pain medication, blood clot, allergic reaction, loss of function, loss of limb, loss of life. Patient voices understanding of these risks. Patient was able to repeat these back. Patient understands the necessity of fixation and surgical plan. Consent was obtained and patient signed freely. No promises were made. No guarantees were made. He was scheduled to undergo removal of the external fixator left lower extremity, debridement of bone, delayed primary closure, and primary ORIF of the tibia and fibular fractures at [facility] on 07/28/2023. All radiographic imaging was reviewed prior to entering the OR. Operative limb was signed prior to entering the OR. Procedure: Under mild sedation patient was brought into the operating placed on the table in supine position. Patient did undergo a popliteal block to the left lower extremity by anesthesia team. Following induction of general anesthesia a pneumatic thigh tourniquet was placed about the patient's left thigh. Left hip blanket bump placed. Left leg was elevated by blanket bump. Next, attention was directed to the left lower extremity where the external fixator was disassembled and removed with medial cuneiform pin, calcaneal pin, and 2 tibial pins remaining. At this time the left lower extremity was scrubbed, prepped, and draped in the usual aseptic manner. All pins were then removed from the left lower extremity and all pin sites underwent sharp excisional debridement of subcutaneous tissue via curettage. Pin sites of bone underwent sharp excisional debridement via curettage. All sites were then flushed with copious amounts of normal sterile saline. 3-0 Prolene was then utilized to close all pin sites in simple interrupted fashion. An Esmarch bandage was utilized and the left lower extremity was elevated and exsanguinated and the pneumatic thigh tourniquet was inflated to 300 mmHg. Under fluoroscopic guidance fractures were marked out with all anatomic landmarks and fluoroscopy utilized to aid in incision placement. Attention was directed to the lateral aspect of the left lower extremity where a linear incision was made overlying the distal fibular shaft utilizing a #15 blade. Incision was deepened via sharp and blunt dissection and care was taken to identify and retract all vital neurovascular structures. The fibular fracture was identified and incised with periosteum reflected from the fracture site. Fracture site was debrided of hematoma and small osseous fragments utilizing curette and rongeur. Site was flushed with copious amounts of normal sterile saline. Fracture was reduced via a pointed reduction clamp and an Arthrex 6-hole distal fibular locking plate was applied to the lateral aspect of the fibula and temporarily pinned via threaded BB tack. Fracture was viewed under fluoroscopy in multiple views confirming placement of the plate. Following AO principles the distal holes were filled with 3.0 mm locking screws measuring 12 mm, 14 mm, 16 mm, and 16 mm. Proximal plate holes were filled proximal to distal utilizing 3.5 mm cortical screws measuring 16 mm, 14 mm, 14 mm, 16 mm. Next, fluoroscopy was utilized to view fibular fixation in well alignment. Next, attention was directed to the anterior medial aspect of the distal tibia where a linear incision was made utilizing a #15 blade. Incision was deepened via sharp and blunt dissection and care was taken to identify and retract all vital neurovascular structures. Small venous tributary veins were ligated and cauterized as necessary. Incision was made through the periosteum utilizing #15 blade and fracture site was identified and debrided of hematoma and small osseous fragments utilizing curette and rongeur. Site was flushed with copious amounts of normal sterile saline. Next, two pointed reduction clamps were utilized to reduce tibial fracture and an Arthrex medial straight 10 hole buttress plate was temporarily anchored along the medial distal tibia utilizing threaded BB tack. Fluoroscopy was utilized to confirm placement of the plate and multiple views. Following AO principles 2 most distal holes were filled with two 4.0 mm partially-threaded cancellous screws measuring 42 mm and 44 mm the next hole proximal to these 2 were filled with a 3.5 x 38 mm locking screw. The 3 most proximal holes were then filled with three 3.5 x 28 mm locking screws. At this time the pneumatic thigh tourniquet was deflated for a 10-minute perfusion period. Next, small osseous defects secondary to comminution in the distal fibula and distal tibia were filled with 5 cc Allosync pure DBM. At this time there was noted to be syndesmotic instability under fluoroscopic view and following AO principles a syndesmotic screw measuring 60 mm was placed across the syndesmosis with four cortex fixation achieved with excellent reduction noted. Upon final tightening via hand screwdriver the head of the screw did break off. This was removed and transferred to the table. Syndesmotic stability did remain when tested under fluoroscopy. Next, a 10 hole 2.7 mm wide T plate was applied to the anterior medial aspect of the tibia and temporarily fixated using BB tack. Position was confirmed under fluoroscopy. At this time the left lower extremity was then elevated and the pneumatic tourniquet was reinflated to 300 mmHg. Next, following AO principles the distal lateral hole was filled utilizing 2.7 x 32 mm cortical screw. The distal medial hole was filled a 2.7 x 46 mm locking screw. The hole proximal to this was filled with a 2.7 x 48 mm locking screw. The hole proximal to this spanning the fracture site was fixated with a 2.7 x 44 mm cortical screw. Moving proximally the remaining holes were filled with a 2.7 x 38 mm locking screw, a 2.7 x 34 mm cortical screw, a 2.7 x 32 mm locking screw, and a 2.7 x 30 mm locking screw. Final fixation was viewed in multiple fluoroscopic views confirming reduction of fracture fragments. At this time incision sites were flushed with copious amounts of normal sterile saline. The lateral incision deep layer was closed utilizing 2-0 Vicryl. The subcutaneous tissue was closed utilizing 4-0 Monocryl. And the skin was reapproximated utilizing 3-0 Prolene in simple interrupted fashion. The anterior medial incision deep layer was closed utilizing 2-0 Vicryl. The subcutaneous tissue was closed utilizing 4-0 Monocryl. And the skin was reapproximated utilizing 3-0 Prolene in simple interrupted fashion. At this time the pneumatic thigh tourniquet was deflated and a prompt hyperemic response was noted to the digits of the left foot. Incision sites were dressed utilizing Betadine soaked Adaptic, 4 x 4 gauze, Kerlix x2, specialist cast padding, 4 inch Francisco wrap, 6 inch Francisco wrap. A well molded sugar-tong cast was applied to the left lower extremity and anchored with a 4 inch Francisco wrap and 6 inch Francisco wrap in modified Mares compression fashion. The patient tolerated the procedure and anesthesia well was transported to PACU with vital signs stable and vascular status intact to the left foot. He will remain in house for postoperative pain control. He will continue to elevate lower extremity at all times of rest. He is to remain nonweightbearing to the left lower extremity utilizing walker. I will continue to follow while in house for postoperative care. Following anticipated stay for pain control he will be discharged home and will continue to follow in office for postoperative care. Grafts/Implants Used: Arthrex titanium plate x 3; 25 screws; 5cc Allosync Pure DBM Complications None Admit VTE Documentation VTE Present on Admission: No VTE Mechan Device Prophylaxis: SCD's VTE Pharm Prophylaxis ordered?: Yes
--- NOTE | 2023-07-28 16:30 | RAD_ITS ---
INDICATION: Post-operative Tibial and Fibular Fracture EXAMINATION/TECHNIQUE: X-RAY - LEFT XR Ankle Min 3 Views 3 VIEWS COMPARISON: 07/07/2023 FINDINGS: 3 views obtained in a fiberglass splint which overlies and obscures fine bony detail shows interval hardware placement from ORIF bimalleolar fractures. Overall alignment is near-anatomic. The external fixators of been removed with 10 tracts in the tibia and calcaneus. RAD/Ankle min 3 Views IMPRESSION: Status post ORIF bimalleolar fractures. Electronically Signed: Lior Longoria MD at 16:46 EDT ,
[2023-07-29 00:23] VITALS: BP 133/61; PULSE 95; RESP 18; TEMP 37.2; O2SAT 100
[2023-07-29] MEDS: Oxycodone/Apap 5/325 Tablet PO ×4 (00:24→22:02)
[2023-07-29] MEDS: Lactated Ringers 1,000 ML 125 ML IV (00:45)
[2023-07-29 03:39] VITALS: BP 153/119; PULSE 107; RESP 18; TEMP 36.7; O2SAT 100
[2023-07-29] MEDS: Ondansetron 4 MG/2 ML Vial IV ×2 (03:44→18:45)
[2023-07-29] MEDS: 0.9% Saline Lock 10 ML Syringe IV ×5 (03:44→21:56)
[2023-07-29] MEDS: Morphine 4 MG/ML Syringe IV (03:52)
[2023-07-29 04:00] VITALS: BP 129/66; PULSE 96
[2023-07-29] MEDS: cycloBENZAPRine HCl 10 MG Tablet 5 MG PO ×3 (06:32→23:12)
[2023-07-29 08:40] VITALS: BP 135/78; PULSE 81; RESP 18; TEMP 37.4; O2SAT 100
[2023-07-29] MEDS: Enoxaparin 40 MG/0.4 ML Syringe SC (08:46)
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
[2023-07-29] MEDS: Acetaminophen 325 MG Tablet 650 MG PO (12:45)
[2023-07-29] MEDS: Ibuprofen 600 MG Tablet PO ×2 (12:45→18:43)
--- NOTE | 2023-07-29 13:08 | CASEMGMT ---
Addendum entered by Chata Duarte 07/29/23 15:56: Received tc from [facility] who states they will not be able to process pt DME until Tuesday. RN CM into pt room, pt provided with rx and face sheet to provide to [employer] for these items. Pt agreeable to this. He denies further homegoing needs. Original Note: Received signed rx for walker, BSC and shower chair. Spoke with , pt does not need any therapy and he will do dressing changes in the office. Referral to [facility] [place] [place] via [facility] for walker sent at this time.
[2023-07-29 14:45] VITALS: BP 114/81; PULSE 93; RESP 18; TEMP 37.4; O2SAT 98
--- NOTE | 2023-07-29 18:13 | PCM.PROGNOTE ---
Subjective Subjective Patient is a 43-year-old male who is seen this afternoon for follow-up s/p ORIF tibia and fibular fractures. He does ask for additional pain medication today as he is anticipating extreme pain. He states that he did feel pretty good after the block in the back of his leg however he fears once this wears off pain will return and be severe. Nursing reports no overnight events. Patient is working with therapy to remain nonweightbearing to the left lower extremity with the assistance of a walker. Patient able to void. Denies constitutional symptoms. Denies further complaints. Objective Data Objective Data Vital Signs: Vital Signs Temp Pulse Resp BP Pulse Ox O2 Del Method O2 Flow Rate 99.4 F H 93 18 114/81 H 98 Room Air 2 07/29/23 14:45 07/29/23 14:45 07/29/23 14:45 07/29/23 14:45 07/29/23 14:45 07/29/23 14:45 07/28/23 22:10 Oxygen Flow Rate (L/min) 2 Oxygen Delivery Method Room Air Weight: 93.6 kg Body Mass Index (BMI) 29.5 Intake & Output: Intake and Output for Last 24 Hours 07/27/23 07/28/23 07/29/23 23:59 23:59 23:59 Intake Total 870.83 / 870.83 3197.5 / 3197.5 1795.83 / 1795.83 Output Total 800 / 800 1800 / 1800 2600 / 2600 Balance 70.83 / 70.83 1397.5 / 1397.5 -804.17 / -804.17 Lab / Micro Data 07/27/23 14:36 07/27/23 14:36 Physical Exam Const alert, oriented x3 and no apparent distress General Appearance: cooperative and well developed HEENT normocephalic Eyes General Eye: normal appearance of both eyes Neck General: normal visual inspection Lymph Lymphatic: no lymphadenopathy noted and no lymphedema noted Chest inspection of chest normal Resp normal respiratory effort Cardio regular rate and regular rhythm GI soft to palpation and non-tender Extremity Extremity Narrative: Vascular: DP and PT pulses palpable with adequate capillary fill time less than 3 seconds to digits. Normal temperature gradient proximal to distal. Edema well controlled about the foot and ankle. No evidence of fracture blister. Dermatological: Skin demonstrates normal turgor. No rashes or lesions, no subcutaneous nodules, no ecchymosis, no evidence of fracture blister. No soft tissue edema noted. Sutures intact at all pin sites. Sutures intact at anteromedial and lateral incision sites. No signs of infection. Musculoskeletal: Muscle strength and range of motion deferred secondary to fracture. Skin no rashes or lesions noted, skin turgor normal and no jaundice Neuro oriented x3 and moves all extremities Assessment & Plan Assessment/Plan (1) Displaced fracture of lateral malleolus of left fibula: (2) Displaced comminuted fracture of shaft of left tibia, initial encounter for closed fracture: (3) Pain in left lower leg: (4) Ankle fracture: PLAN: Plan Patient seen and evaluated He is s/p removal of external fixator, debridement of bone/subcutaneous tissue/pin sites, delayed primary closure of pin sites, and Primary ORIF of the Tibial and Fibular Fractures of the left lower extremity. DOS: 07/07/2023. POD #22 Dressings removed and sites inspected. Sutures intact at anterior medial and anterior lateral incision sites. Sutures intact to all prior pin sites. No signs of infection. All sites painted with Betadine and dressed with Betadine soaked Adaptic, 4 x 4 gauze, Kerlix x2, Webril cast padding, 4 inch Francisco wrap, 6 inch Francisco wrap. Sugar-tong cast was reapplied and anchored with 4 inch Francisco wrap and 6 inch Francisco wrap and modified Mares compression fashion. He will continue to elevate left lower extremity at all times of rest. He will remain nonweightbearing to the left lower extremity with assistance of crutches/walker Radiographic images from 07/05/2023 were reviewed in addition to CT scan from 07/05 and postsurgical images from 07/07/2023 with application of external fixator. There is noted oblique spiral type comminuted fracture of the distal tibia and fibula with noted angulation postreduction demonstrating improved alignment. Postoperative imaging 07/28/2023 demonstrates near anatomic alignment of fracture fragments with plate and screw construct. Pain medication: Morphine 4 mg every 4 hours for first 24 hours following surgery, then will transition to 2 mg every 4 hours. Oxycodone 5 mg p.o. every 6 hours as needed pain, Tylenol/Motrin 600 mg every 6 hours as needed pain. I discussed with patient the need to wean off of pain medication and by weekend pain should be controlled with oral medication only. He voices understanding of this. Dressings will remain intact to left lower extremity and patient will continue to follow in office upon discharge for continued postoperative care. Podiatry will continue to follow Sudheer Gorman Jr. D.P.M. [facility] [phone]
[2023-07-29 21:52] VITALS: BP 130/79; PULSE 89; RESP 18; TEMP 36.9; O2SAT 100
[2023-07-30 02:57] VITALS: BP 122/72; PULSE 91; RESP 18; TEMP 36.8; O2SAT 98
[2023-07-30] MEDS: Ibuprofen 600 MG Tablet PO ×2 (03:05→09:12)
[2023-07-30] MEDS: Oxycodone/Apap 5/325 Tablet PO ×2 (04:52→11:00)
[2023-07-30] MEDS: cycloBENZAPRine HCl 10 MG Tablet 5 MG PO (09:12)
[2023-07-30] MEDS: Enoxaparin 40 MG/0.4 ML Syringe SC (09:13)
[2023-07-30 09:19] VITALS: BP 137/61; PULSE 97; RESP 18; TEMP 36.6; O2SAT 100
--- NOTE | 2023-07-30 11:35 | DS.PCM_ITS ---
Providers Date of Admission: 07/27/23 Date of Discharge: 07/30/23 Primary Care Physician: No Primary Care Phys Reason For Visit: L LEG FX Diagnosis Discharge Diagnosis (1) Displaced fracture of lateral malleolus of left fibula: Status: Acute Code(s): S82.62XA - Displaced fracture of lateral malleolus of left fibula, initial encounter for closed fracture (2) Displaced comminuted fracture of shaft of left tibia, initial encounter for closed fracture: Status: Acute Code(s): S82.252A - Displaced comminuted fracture of shaft of left tibia, initial encount er for closed fracture (3) Ankle fracture: Status: Acute Code(s): S82.899A - Other fracture of unspecified lower leg, initial encounter for closed fracture (4) Syndesmotic disruption of left ankle: Status: Acute Code(s): S93.432A - Sprain of tibiofibular ligament of left ankle, initial encounter (5) Pain in left lower leg: Status: Acute Code(s): M79.662 - Pain in left lower leg Plan Patient seen and evaluated He is s/p removal of external fixator, debridement of bone/subcutaneous tissue/pin sites, delayed primary closure of pin sites, and Primary ORIF of the Tibial and Fibular Fractures of the left lower extremity. DOS: 07/07/2023. POD #23 He did undergo primary fixation on 07/28/23 Dressings removed and sites inspected. Sutures intact at anterior medial and anterior lateral incision sites. Sutures intact to all prior pin sites. No signs of infection. All sites painted with Betadine and dressed with Betadine soaked Adaptic, 4 x 4 gauze, Kerlix x2, Webril cast padding, 4 inch Francisco wrap, 6 inch Francisco wrap. Sugar-tong cast was reapplied and anchored with 4 inch Francisco wrap and 6 inch Francisco wrap and modified Mares compression fashion. He will continue to elevate left lower extremity at all times of rest. He will remain nonweightbearing to the left lower extremity with assistance of crutches/walker Radiographic images from 07/05/2023 were reviewed in addition to CT scan from 07/05 and postsurgical images from 07/07/2023 with application of external fixator. There is noted oblique spiral type comminuted fracture of the distal tibia and fibula with noted angulation postreduction demonstrating improved alignment. Postoperative imaging 07/28/2023 demonstrates near anatomic alignment of fracture fragments with plate and screw construct. Pain medication: Morphine 4 mg every 4 hours for first 24 hours following surgery, then will transition to 2 mg every 4 hours. Oxycodone 5 mg p.o. every 6 hours as needed pain, Tylenol/Motrin 600 mg every 6 hours as needed pain. I discussed with patient the need to wean off of pain medication and by weekend pain should be controlled with oral medication only. He voices understanding of this. Home pain medication will be Oxycodone 5/325mg and Flexeril 5mg. Will also be on oral anti-coagulant. Dressings will remain intact to left lower extremity and patient will continue to follow in office upon discharge for continued postoperative care. Jr. Zehra PrinceP.M. [facility] [phone] Medications at Discharge Home Medications aspirin 325 mg tablet 325 mg PO DAILY #20 tabs 07/30/23 cyclobenzaprine 5 mg tablet 5 mg PO QHS #14 tabs 07/30/23 doxycycline hyclate 100 mg capsule 100 mg PO DAILY #10 caps 07/30/23 oxycodone-acetaminophen 5 mg-325 mg tablet 1 tab PO Q8H 7 days #30 tabs 07/30/23 Hospital Course Operations - (Primary ORIF Tibial and Fibular Fractures; Syndesmotic Fixation; Removal of External Fixator; Debridement of bone; Delayed Primary closure of pin sites.) Physical Exam Const alert, oriented x3 and no apparent distress General Appearance: cooperative and well developed HEENT normocephalic Eyes General Eye: normal appearance of both eyes Neck General: normal visual inspection Lymph Lymphatic: no lymphadenopathy noted and no lymphedema noted Chest inspection of chest normal Resp normal respiratory effort Cardio regular rate and regular rhythm GI soft to palpation and non-tender Extremity Extremity Narrative: Vascular: DP and PT pulses palpable with adequate capillary fill time less than 3 seconds to digits. Normal temperature gradient proximal to distal. Edema well controlled about the foot and ankle. No evidence of fracture blister. Dermatological: Skin demonstrates normal turgor. No rashes or lesions, no subcutaneous nodules, no ecchymosis, no evidence of fracture blister. No soft tissue edema noted. Sutures intact at all pin sites. Sutures intact at anteromedial and lateral incision sites. No signs of infection. Musculoskeletal: Muscle strength and range of motion deferred secondary to fracture. Sugar-tong cast applied to Left Lower Extremity. Skin no rashes or lesions noted, skin turgor normal and no jaundice Neuro oriented x3 and moves all extremities Weight / BMI Weight Weight: 93.6 kg Body Mass Index (BMI) 29.5 ABG / Lab / Microbiology Data 07/27/23 14:36 07/27/23 14:36 D/C Instructions Discharge Diet: No restrictions Discharge Activity: May Not Drive and May Shower (May shower with cast bag covering may shower with cast bag covering to the left lower extremity to keep dressings clean, dry, and intact. He will remain seated on shower chair to remain non-weight bearing.) Weight Bearing Status: No weight bearing (He is to remain non-weight bearing to Left Lower Extremity with assistance of walker) Keep extremity elevated above heart level: Left Leg (Elevate left lower extremity at all times of rest for post-operative edema control.) Call your doctor if you observe: Fever of 101 or Higher, Shortness of breath, Chest pain and Calf discomfort Change Dressing in: do not change dressing Remove Dressing in: leave in place till F/U (Physician will change dressings at next post-operative appointment in office.) Cleanse incision/area with: Do not get Incision Wet and Keep Dressing Clean & Dry (Do not get dressings wet. Keep dressings clean, dry, and intact to the Left leg.) Please Follow Up With: Sudheer Gorman DPM When: Patient will have post-operative appointment in office next week. Meaningful Use Info Meaningful Use Diagnoses (Choose all that apply): None applicable VTE Anticoag overlap given w/in hospital stay or rx'd at [place]?: Yes Pt receive overlap for 5 days?: Yes Discharge Plan Admission Admit Date/Time: 07/27/23 13:40 Attending Provider: Sudheer Gorman Primary Care Provider: Care Physician,Padmaja Primary Discharge Orders/Prescriptions Prescriptions: New aspirin 325 mg tablet 325 mg PO DAILY Qty: 20 0RF doxycycline hyclate 100 mg capsule 100 mg PO DAILY Qty: 10 0RF cyclobenzaprine 5 mg tablet 5 mg PO QHS Qty: 14 0RF oxycodone-acetaminophen 5-325 mg tablet 1 tab PO Q8H 7 Days Qty: 30 0RF Discontinued oxycodone-acetaminophen [Percocet] 5-325 mg tablet 1 tab PO Q4H PRN (Reason: pain) 3 Days Qty: 20 0RF Referrals / Follow Up: Care Physician,No Primary [Primary Care Provider] - Disposition Disposition (needs filled in before D/C Order can be placed): Home, Self Care
--- NOTE | 2023-07-30 11:47 | DCINST_ITS ---
Discharge Instructions Diet Discharge Diet: No restrictions Activity Weight Bearing Status: No weight bearing (He is to remain non-weight bearing to Left Lower Extremity with assistance of walker) Keep extremity elevated above heart level: Left Leg (Elevate left lower extremity at all times of rest for post-operative edema control.) Dressing / Incision Call your doctor if you observe: Fever of 101 or Higher, Shortness of breath, Chest pain and Calf discomfort Cleanse incision/area with: Do not get Incision Wet and Keep Dressing Clean & Dry (Do not get dressings wet. Keep dressings clean, dry, and intact to the Left leg.) Follow Up Care Please Follow Up With: Sudheer Gorman DPM Test Results: Test results from this visit will be discussed in further detail at your follow- up appointment, if applicable. Discharge Plan Admission Admit Date/Time: 07/27/23 13:40 Attending Provider: Sudheer Gorman Primary Care Provider: Care Physician,Padmaja Primary Discharge Orders/Prescriptions Prescriptions: New aspirin 325 mg tablet 325 mg PO DAILY Qty: 20 0RF doxycycline hyclate 100 mg capsule 100 mg PO DAILY Qty: 10 0RF cyclobenzaprine 5 mg tablet 5 mg PO QHS Qty: 14 0RF oxycodone-acetaminophen 5-325 mg tablet 1 tab PO Q8H 7 Days Qty: 30 0RF Discontinued oxycodone-acetaminophen [Percocet] 5-325 mg tablet 1 tab PO Q4H PRN (Reason: pain) 3 Days Qty: 20 0RF Referrals / Follow Up: Care Physician,No Primary [Primary Care Provider] - Disposition Disposition (needs filled in before D/C Order can be placed): Home, Self Care
[2023-07-30 13:55] VITALS: BP 146/99; PULSE 95; RESP 18; TEMP 36.6; O2SAT 100
== END 2023-07-30 15:39 | disposition home or self-care (01) | DRG 464 ==
PROVIDERS: Admitting Provider Student in an Organized Health Care Education/Training Program; Visit Provider Student in an Organized Health Care Education/Training Program
PROC: 0JBP0ZZ Excision of Left Lower Leg Subcutaneous Tissue and Fascia, Open Approach (ICD-10-PCS; principal; 2023-07-28 09:40)
DX: S93.432A Sprain of tibiofibular ligament of left ankle, initial encounter (principal); S82.252A Displaced comminuted fracture of shaft of left tibia, initial encounter for closed fracture; S82.62XA Displaced fracture of lateral malleolus of left fibula, initial encounter for closed fracture; X58.XXXA Exposure to other specified factors, initial encounter
CPT/HCPCS: 73600; 73610; 76000; 80048; 85025; 97162; C1713; J7120; A4216; J2405